=== PATIENT | male | born 1935 | race Caucasian/White ===

== ENCOUNTER 2016-09-15 08:25 | Day surgery (SDC) | payer OTHER, BC ==
[2016-09-15] MEDS ORDERED: PROPOFOL 20 ML ONE ×3 (08:44)
[2016-09-15 09:05] VITALS: BMI 25.0
[2016-09-15 10:04] VITALS: TEMP 98.4
[2016-09-15 10:59] VITALS: BP 137/89; PULSE 58
--- NOTE | 2016-09-18 10:02 | PATH ---
Surgical Pathology Report Patient Name: LAIM OLEARY [facility]. Rec. #: [id number] /Age/Gender: 1935 (Age: 81) / M Account: [id number] Location: U-ENDOSCOPY Taken: 09/15/2016 Received: 09/15/2016 Reported: 09/18/2016 Physicians: Meera Denis M.D. Specimen(s) Received A: BX ILEUM B: BX CECUM C: BX RIGHT COLON D: BX TRANSVERSE COLON E: BX DESCENDING COLON F: BX SIGMOID G: BX RECTUM Clinical History Crohn's disease surveillance Crohn's of terminal ileum, quiescent colitis, diverticulosis Final Diagnosis A. ILEUM, BIOPSY: FOCALLY ULCERATED ILEAL MUCOSA WITH ACTIVE MILD TO MODERATE CHRONIC COLITIS WITH FOCAL SURFACE ULCERATION, ULCER SLOUGH, FOCAL GRANULATION TISSUE FORMATION, REACTIVE LYMPHOID AGGREGATES AND MILD CRYPT ALTERATION. NO EVIDENCE OF GRANULOMATA OR DYSPLASIA. B. COLON, CECUM, BIOPSY: COLONIC MUCOSA WITH FOCAL REACTIVE LYMPHOID AGGREGATES AND FOCAL MILD CRYPT ALTERATIONS. NO EVIDENCE OF ACTIVE INFLAMMATION, GRANULOMATA OR DYSPLASIA. C. COLON, RIGHT, BIOPSY: COLONIC MUCOSA WITH FOCAL MINIMAL CRYPT ALTERATION. NO EVIDENCE OF ACTIVE INFLAMMATION, GRANULOMATA OR DYSPLASIA. D. COLON, TRANSVERSE, BIOPSY: COLONIC MUCOSA WITHOUT SIGNIFICANT PATHOLOGIC CHANGES. NO EVIDENCE OF ACTIVE INFLAMMATION, SIGNIFICANT ARCHITECTURAL DISTORTION, GRANULOMATA WITH DYSPLASIA. E. COLON, DESCENDING, BIOPSY: COLONIC MUCOSA WITH FOCALLY ACTIVE MILD CHRONIC COLITIS WITH FOCAL CRYPTITIS AND FOCAL MILD CRYPT ALTERATION. NO EVIDENCE OF GRANULOMATA OR DYSPLASIA. F. COLON, SIGMOID, BIOPSY: COLONIC MUCOSA WITH FOCALLY ACTIVE MILD CHRONIC COLITIS WITH CRYPTITIS AND FOCAL MINIMAL CRYPT ALTERATION. NO EVIDENCE OF GRANULOMATA OR DYSPLASIA. G. RECTUM, BIOPSY: RECTAL MUCOSA WITH FOCAL ACTIVE PROCTITIS WITH FOCAL CRYPTITIS, FOCAL CRYPT REGENERATIVE CHANGES AND SURFACE HYPERPLASTIC CHANGE. NO EVIDENCE OF SIGNIFICANT ARCHITECTURAL DISTORTION, GRANULOMATA OR DYSPLASIA. Comment: Clinical history of Crohn's disease is noted. 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 Electronically Signed Peyman Edward M.D. Gross Description A. Received in formalin, labeled "biopsy ileum" are 6 gauthier, irregular portions of soft tissue ranging from 0.1-0.4 cm in greatest dimension. The specimens are submitted in toto in one cassette. B. Received in formalin, labeled "biopsy cecum" are 5 gauthier, irregular portions of soft tissue ranging from 0.2-0.9 cm in greatest dimension. The specimens are submitted in toto in one cassette. C. Received in formalin, labeled "biopsy right colon" are 3 gauthier, irregular portions of soft tissue averaging 0.3 cm in greatest dimension. The specimens are submitted in toto in one cassette. D. Received in formalin, labeled "biopsy transverse colon" are 4 gauthier, irregular portions of soft tissue ranging from 0.3-0.6 cm in greatest dimension. The specimens are submitted in toto in one cassette. E. Received in formalin, labeled "biopsy descending colon" are 4 gauthier, irregular portions of soft tissue ranging from 0.2-0.4 cm in greatest dimension. The specimens are submitted in toto in one cassette. F. Received in formalin, labeled "biopsy sigmoid colon" are 4 gauthier, irregular portions of soft tissue ranging from 0.2-0.4 cm in greatest dimension. The specimens are submitted in toto in one cassette. G. Received in formalin, labeled "biopsy rectum" are 4 gauthier, irregular portions of soft tissue ranging from 0.2-0.3 cm in greatest dimension. The specimens are submitted in toto in one cassette. 09/15/2016 saudi09/15/2016
== END 2016-09-15 10:58 | disposition home or self-care (01) ==
LOC: JASU-ENDO 08:25
PROVIDERS: ATTEND Internal Medicine Gastroenterology
PROC: 0DBB8ZX Excision of Ileum, Via Natural or Artificial Opening Endoscopic, Diagnostic (ICD-10-PCS; principal; 2016-09-15 09:00)
DX: Z12.11 Encounter for screening for malignant neoplasm of colon (principal); K50.90 Crohn's disease, unspecified, without complications; K63.3 Ulcer of intestine; K56.69 Other intestinal obstruction; K57.30 Diverticulosis of large intestine without perforation or abscess without bleeding
CPT/HCPCS: 88305-TC

== ENCOUNTER 2018-03-31 16:32 | Emergency (ER) | payer OTHER, BC ==
[2018-03-31 16:40] VITALS: BMI 24.7
--- NOTE | 2018-03-31 18:12 | PDOC ---
History of Present Illness - General Chief Complaint: Altered Mental Status Stated Complaint: DISORIENTED, NECK & PAIN Time Seen by Provider: 03/31/18 17:50 History Source: Patient - History of Present Illness Initial Comments: 03/31/18 18:10 The patient is an 82 year old male with a PMH of NC, HTN, HLD, Alzheimer's dementia who presents to the ED c/o AMS. Daughter @ bedside assists with history. States at baseline patient is A&O x3 and talkative and ambulates without assistance. Patient drives without assistance. Today daughter found patient wearing three pairs of pants and clothes strewn all around the house. Patient also was ambulating at a slower pace than usual and holding on to daughter. Started Olanzapine two days previous for Alzheimer's associated hallucinations. ROS is positive for dysuria without hematuria. The patient denies chest pain, shortness of breath, abdominal pain, nausea/ vomiting, diarrhea/constipation, numbness/tingling. NKDA Surgical: R inguinal hernia repair Social: Denies toxic habits PMD: Dr. Hodges [facility] Neurology: Dr. Mao Past History - Past Medical History Allergies/Adverse Reactions: Allergies Allergy/AdvReac Type Severity Reaction Status Date / Time No Known Drug Allergies Allergy Verified 03/31/18 16:39 Home Medications: Ambulatory Orders Aspirin Coated [Ecotrin -] 81 mg PO DAILY 11/03/11 Multivit-Min/FA/Lycopene/Lut [Centrum Silver Tablet] 1 each PO DAILY 11/03/11 Metoprolol Succinate [Toprol XL -] 50 mg PO BID #0 tab.sr.24h 11/09/11 Terazosin HCl [Hytrin -] 10 mg PO DAILY #0 capsule 11/09/11 Allopurinol [Zyloprim -] 300 mg PO DAILY 03/25/12 Atorvastatin Calcium [Lipitor] 10 mg PO DAILY 03/25/12 Docosahexanoic Acid/Epa [Fish Oil Softgel] 1 each PO DAILY 03/25/12 Quinapril/Hydrochlorothiazide [Accuretic 20-12.5 mg Tablet] 1 tab PO HS Azathioprine [Imuran -] 50 mg PO DAILY 09/15/15 Mesalamine [Apriso] 4 tab PO DAILY 09/15/15 Anemia: No Asthma: No Cancer: No Cardiac Disorders: Yes (NC,ASHD) COPD: No CHF: No Dementia: No Diabetes: No GI Disorders: Yes (CROHN'S DISEASE) Disorders: No HTN: Yes Hypercholesterolemia: Yes Liver Disease: No Seizures: No Other medical history: gout right foot - Surgical History Abdominal Surgery: Yes (RIH/MESH -REMOVED MESH 04/08) Appendectomy: Yes Orthopedic Surgery: Yes (SEVERED TENDON L WRIST) - Suicide/Smoking/Psychosocial Hx Smoking Status: No Smoking History: Never smoked Have you smoked in the past 12 months: No Number of Cigarettes Smoked Daily: 0 Information on smoking cessation initiated: No Hx Alcohol Use: No Drug/Substance Use Hx: No Substance Use Type: None Hx Substance Use Treatment: No Review of Systems - Review of Systems Constitutional: No: Chills, Fever, Other HEENTM: No: Double Vision Respiratory: No: Cough, Shortness of Breath Cardiac (ROS): No: Chest Pain, Lightheadedness, Palpitations, Syncope ABD/GI: No: Constipated, Diarrhea, Nausea, Vomiting : Yes: Dysuria *Physical Exam - Vital Signs Last Vital Signs Temp Pulse Resp BP Pulse Ox 98.8 F 55 L 18 106/51 L 100 03/31/18 16:35 03/31/18 16:35 03/31/18 16:35 03/31/18 16:35 03/31/18 16:35 - Physical Exam General Appearance: Yes: Nourished, Appropriately Dressed HEENT: positive: Normal Voice, Hearing Grossly Normal Neck: positive: Trachea midline, Supple Respiratory/Chest: positive: Lungs Clear, Normal Breath Sounds. negative: Crackles, Wheezing Cardiovascular: positive: S1, S2 Vascular Pulses: Dorsalis-Pedis (R): 2+, Doralis-Pedis (L): 2+ Gastrointestinal/Abdominal: positive: Normal Bowel Sounds, Soft Extremity: positive: Normal Capillary Refill, Normal Inspection Integumentary: positive: Normal Color, Dry, Warm Neurologic: positive: Fully Oriented, Alert ED Treatment Course - LABORATORY CBC & Chemistry Diagram: 03/31/18 19:30 03/31/18 19:30 Medical Decision Making - Medical Decision Making 03/31/18 18:13 82 year old with AMS. VS unremarkable. PE signifcant for RLQ TTP. Will obtain AMS lab (TSH, B-12, Ammonia, Lactic Acid) + Head CT. As patient has abdominal tenderness and unable to provide comprehensive history, will obtain CT abdomen. IV fluids. Reassess. 03/31/18 20:24 Lactic Acid, Ammonia, Mg wnL Head CT negative for acute ischemia/bleed Abdominal CT shows illeitis, inguinal hernia, interstitial changes c/w chronic lung disease. UA negative Troponin (-) x1 At this time patient is medically stable without concern for medical emergency. Will discharge home w/daughter with instruction to follow-up with PMD for evaluation of home care. I discussed the physical exam findings, ancillary test results and final diagnoses with the patient. I answered all of the patient's questions. The patient was satisfied with the care received and felt comfortable with the discharge plan and treatment plan. The patient will return to the Emergency Department with any new, persistent or worsening symptoms. *DC/Admit/Observation/Transfer Diagnosis at time of Disposition: Altered mental status - Discharge Dispostion Disposition: HOME Condition at time of disposition: Good Decision to Admit order: No - Referrals Referrals: Luis Roland MD [Primary Care Provider] - Rey Mao MD [Staff Physician] - - Patient Instructions Additional Instructions: All of your father's labs and a cat scan of his head and his abdomen showed no concerning findings. At this time you are safe for discharge home. Please call Dr. Roland in the morning to review your father's medications. Return to the Emergency Department for any new/worsening/concerning symptoms. - Post Discharge Activity
[2018-03-31 19:39] LABS: BASO % 0.8 % (0-2.0); EOS % 2.1 % (0-4.5); HEMATOCRIT 31.2 % (35.4-49); HEMOGLOBIN 11.2 GM/dL (11.7-16.9); LYMPH % 17.4 % (8-40); MCH 35.8 pg (25.7-33.7); MCHC 35.9 g/dl (32.0-35.9); MEAN CELL VOLUME 99.7 fl (80-96); MEAN PLT VOLUME 8.2 fl (7.5-11.1); MONO % 6.6 % (3.8-10.2); NEUT % 73.1 % (42.8-82.8); PLATELET COUNT 180 K/MM3 (134-434); RBC 3.12 M/mm3 (4.00-5.60); RDW 15.1 % (11.9-15.9); WHITE BLOOD COUNT 5.1 K/mm3 (4.0-10.0)
[2018-03-31] MEDS ORDERED: SODIUM CHLORIDE 0.9% 500 ML INFUS.BAG IV ONE (20:25)
[2018-03-31 20:32] LABS: ALBUMIN 3.8 g/dl (3.4-5.0); ALK PHOS 49 U/L (45-117); ANION GAP 7 MMOL/L (8-16); BILIRUBIN,TOTAL 1.2 mg/dL (0.2-1); BLOOD UREA NITROGEN 35 mg/dL (7-18); CALCIUM 8.5 mg/dL (8.5-10.1); CHLORIDE 108 mmol/L (98-107); CO2 25 mmol/L (21-32); GLUCOSE,RANDOM 95 mg/dL (74-106); POTASSIUM 3.6 mmol/L (3.5-5.1); SGOT/AST 24 U/L (15-37); SGPT/ALT 22 U/L (13-61); SODIUM 140 mmol/L (136-145); TOT PROT 5.9 g/dl (6.4-8.2)
--- NOTE | 2018-03-31 21:20 | PDOC ---
Attending Attestation - Resident Resident Name: Blanca Boyce - ED Attending Attestation I have performed the following: I have examined & evaluated the patient, The case was reviewed & discussed with the resident, I agree w/resident's findings & plan, Exceptions are as noted - HPI HPI: 03/31/18 21:19 this 82 yo male with history of dementia was found with three sets of clothes on and walking more slowly than usual 03/31/18 21:20 - Physicial Exam PE: 04/01/18 01:47 elderly 82 who is ambulatory and conversant was brought in by his daughter for increasing confusion 04/01/18 01:48 head ncat neck supple eyes jyothi eomi lungs cta b/l cvs [id number] abd soft,nontender ext from,nodeformity neuro alert and conversant,no ataxia,motor strength 5/5,no clonus,very poor historian psych sl belligerent skin warm and dry - Medical Decision Making 03/31/18 22:17 Patient is being hydrated prior to his CAT scan with contrast. 2. GFR greater than 60. Creatinine is within normal limits 03/31/18 22:58 04/01/18 01:50 ct scan head no acute intracranial pathology UA negative ekg no ischema,neg trop imp worsening dementia plan see Dr Roland this week in the office ,discuss home care
[2018-03-31 22:35] VITALS: BP 108/55; PULSE 59; TEMP 98.1
[2018-03-31 23:24] LABS: URINE APPEARANCE CLEAR; URINE BILIRUBIN NEGATIVE (<2.0 mg/dL); URINE COLOR COLORLESS; URINE GLUCOSE (UA) NEGATIVE (NEGATIVE); URINE KETONE NEGATIVE (NEGATIVE); URINE LEUK ESTERASE NEGATIVE (NEGATIVE); URINE NITRITE NEGATIVE (NEGATIVE); URINE PROTEIN NEGATIVE (NEGATIVE); URINE UROBILINOGEN NEGATIVE mg/dL (0.2-1.0)
--- NOTE | 2018-04-01 10:30 | EKG ---
Test Reason : Blood Pressure : / mmHG Vent. Rate : 052 BPM Atrial Rate : 052 BPM P-R Int : 174 ms QRS Dur : 072 ms QT Int : 462 ms P-R-T Axes : 062 006 028 degrees QTc Int : 429 ms SINUS BRADYCARDIA OTHERWISE NORMAL ECG WHEN COMPARED WITH ECG OF 03-NOV-2011 14:26, PREMATURE SUPRAVENTRICULAR COMPLEXES ARE NO LONGER PRESENT CRITERIA FOR INFERIOR INFARCT ARE NO LONGER PRESENT Confirmed by DEAN BAUMANN, STEPH ([id number]) on 04/01/2018 10:29:54 AM Referred By: Confirmed By:STEPH MORAN MD
== END 2018-04-01 00:28 | disposition home or self-care (01) ==
LOC: JER 16:32
DX: G30.8 Other Alzheimer's disease (principal); F02.80 Dementia in other diseases classified elsewhere, unspecified severity, without behavioral disturbance, psychotic disturbance, mood disturbance, and anxiety; I25.10 Atherosclerotic heart disease of native coronary artery without angina pectoris; I10 Essential (primary) hypertension; I25.2 Old myocardial infarction; E78.00 Pure hypercholesterolemia, unspecified; M10.9 Gout, unspecified
CPT/HCPCS: 36415; 70450-TC; 71045-TC-FY; 74177-TC; 80053; 81003; 82140; 82550; 82553; 82607; 83605; 83735; 84443; 84484; 85025; 87086; 93005; 93010; 99282-25

== ENCOUNTER 2018-08-01 13:12 | Inpatient (IN) | payer OTHER, BC ==
--- NOTE | 2018-08-01 15:37 | PDOC ---
History of Present Illness - General Chief Complaint: Altered Mental Status Stated Complaint: SENT BY PCP Time Seen by Provider: 08/01/18 14:04 History Source: Patient, Family (daughter) - History of Present Illness Initial Comments: 08/01/18 15:28 *Pt is a poor historian, majority obtained by daughter Pt is an 83yo M with PMH of Alzheimer's Dementia, Crohn's Disease, BPH, HTN sent to ED by PMD with daughter for AMS. Per daughter, pt has been "seeing people in his home" for the past week or so. Pt states that he does see people and when he is told that they are not there the people go away. Daughter went to pt's home and saw that his living space was disheveled, has garbage on the stove, is urinating on the floor, goes up to his neighbor's home telling them about the people. Per daughter, Dr. Roland recommended admission. He has been given different medications for dementia but is only taking Namenda right now. PMD: Luan Neuro: [facility] PMH: see hpi Meds: see med rec Allergies: nkda Social; denies 08/01/18 19:30 Past History - Past Medical History Allergies/Adverse Reactions: Allergies Allergy/AdvReac Type Severity Reaction Status Date / Time No Known Drug Allergies Allergy Verified 03/31/18 16:39 Home Medications: Ambulatory Orders Metoprolol Succinate [Toprol XL -] 50 mg PO BID #0 tab.sr.24h 11/09/11 Terazosin HCl [Hytrin -] 10 mg PO DAILY #0 capsule 11/09/11 Allopurinol [Zyloprim -] 300 mg PO DAILY 03/25/12 Atorvastatin Calcium [Lipitor] 10 mg PO DAILY 03/25/12 Quinapril/Hydrochlorothiazide [Accuretic 20-12.5 mg Tablet] 1 tab PO HS Azathioprine [Imuran -] 50 mg PO DAILY 09/15/15 Mesalamine [Apriso] 4 tab PO DAILY 09/15/15 Memantine HCl [Namenda -] 10 mg PO BID 08/01/18 Quetiapine Fumarate [Seroquel -] 25 mg PO HS 08/01/18 Anemia: No Asthma: No Cancer: No Cardiac Disorders: Yes ([place],ASHD) COPD: No CHF: No Dementia: Yes Diabetes: No GI Disorders: Yes (CROHN'S DISEASE) Disorders: No HTN: Yes Hypercholesterolemia: Yes Liver Disease: No Seizures: No - Surgical History Abdominal Surgery: Yes (RIH/MESH -REMOVED MESH 04/08) Appendectomy: Yes Orthopedic Surgery: Yes (SEVERED TENDON L WRIST) - Suicide/Smoking/Psychosocial Hx Smoking Status: No Smoking History: Never smoked Have you smoked in the past 12 months: No Number of Cigarettes Smoked Daily: 0 Information on smoking cessation initiated: No Hx Alcohol Use: No Drug/Substance Use Hx: No Substance Use Type: None Hx Substance Use Treatment: No Review of Systems - Review of Systems Constitutional: No: Chills, Fever, Weakness HEENTM: No: Eye Pain, Recent change in vision, Double Vision Respiratory: No: Cough, Shortness of Breath Cardiac (ROS): No: Chest Pain, Lightheadedness, Palpitations, Syncope ABD/GI: No: Symptoms Reported : No: Burning, Dysuria, Flank Pain, Hematuria Musculoskeletal: No: Symptoms Reported Integumentary: No: Symptoms Reported Neurological: No: Headache, Numbness, Tingling, Tremors Psychiatric: Yes: Other (auditory and visual hallucinations) *Physical Exam - Vital Signs Last Vital Signs Temp Pulse Resp BP Pulse Ox 97.8 F 60 18 129/57 L 100 08/01/18 13:30 08/01/18 13:30 08/01/18 13:30 08/01/18 13:30 08/01/18 13:30 - Physical Exam General Appearance: Yes: Nourished, Appropriately Dressed. No: Apparent Distress HEENT: positive: EOMI, KARIN, Pharynx Normal. negative: Pale Conjunctivae, Scleral Icterus (R), Scleral Icterus (L) Neck: positive: Trachea midline, Supple. negative: Carotid bruit, Lymphadenopathy (R), Lymphadenopathy (L) Respiratory/Chest: positive: Lungs Clear, Normal Breath Sounds. negative: Crackles, Rales, Rhonchi, Stridor, Wheezing Cardiovascular: positive: Regular Rhythm, Regular Rate, S1, S2. negative: Edema , JVD, Murmur Vascular Pulses: Carotid (R): 2+, Carotid (L): 2+, Dorsalis-Pedis (R): 2+, Doralis-Pedis (L): 2+ Gastrointestinal/Abdominal: positive: Normal Bowel Sounds, Soft. negative: Guarding, Rebound, Tenderness, Hernia Musculoskeletal: negative: CVA Tenderness Extremity: positive: Normal Capillary Refill, Pelvis Stable. negative: Pedal Edema, Calf Tenderness Integumentary: positive: Normal Color, Dry, Warm Neurologic: positive: flight operations manager II-XII NML intact, Alert, Normal Mood/Affect, Normal Response, Motor Strength 5/5. negative: Fully Oriented (AOx1) Moderate Sedation - Procedure Monitoring Vital Signs: Procedure Monitoring Vital Signs Temperature 97.8 F 08/01/18 13:30 Pulse Rate 60 08/01/18 13:30 Respiratory Rate 18 08/01/18 13:30 Blood Pressure 129/57 L 08/01/18 13:30 O2 Sat by Pulse Oximetry (%) 100 08/01/18 13:30 ED Treatment Course - LABORATORY CBC & Chemistry Diagram: 08/01/18 15:02 08/01/18 15:02 - RADIOLOGY Radiology Studies Ordered: Category Date Time Status HEAD CT WITHOUT CONTRAST [CT] Stat CT Scan 08/01/18 15:19 Ordered Medical Decision Making - Medical Decision Making 08/01/18 17:07 *Pt is a poor historian, majority obtained by daughter Pt is an 83yo M with PMH of Alzheimer's Dementia, BPH, HTN sent to ED by PMD with daughter for AMS. Per daughter, pt has been "seeing people in his home" for the past week or so. Pt states that he does see people and when he is told that they are not there the people go away. Daughter went to pt's home and saw that his living space was disheveled, has garbage on the stove, is urinating on the floor, goes up to his neighbor's home telling them about the people. Per daughter, Dr. Roland recommended admission. He has been given different medications for dementia but is only taking Namenda right now. Vitals: wnl PE: AOx1. Neuro exam normal. Delirium Ddx includes but not limited to electrolyte disturbance, infection, metabolic derangements, brain lesion, polypharmacy -cbc, cmp, coags, ua -ekg, ct head CT head does not show acute changes EKG: nsr Labs wnl. spoke to Dr. Roland who stated pt had been having symptoms for months rather than weeks. Lives alone, is not safe by himself. Family does not live nearby. Pt admitted for AMS, dementia *DC/Admit/Observation/Transfer Diagnosis at time of Disposition: Altered mental status Qualifiers: Altered mental status type: delirium Qualified Code(s): R41.0 - Disorientation , unspecified - Discharge Dispostion Condition at time of disposition: Good Decision to Admit order: Yes - Referrals - Patient Instructions - Post Discharge Activity
[2018-08-01 16:40] LABS: BASO % 0.5 % (0-2.0); EOS % 1.4 % (0-4.5); HEMATOCRIT 36.7 % (35.4-49); HEMOGLOBIN 12.7 GM/dL (11.7-16.9); LYMPH % 11.2 % (8-40); MCH 35.8 pg (25.7-33.7); MCHC 34.5 g/dl (32.0-35.9); MEAN CELL VOLUME 103.7 fl (80-96); MEAN PLT VOLUME 8.9 fl (7.5-11.1); MONO % 8.1 % (3.8-10.2); NEUT % 78.8 % (42.8-82.8); PLATELET COUNT 186 K/MM3 (134-434); RBC 3.54 M/mm3 (4.00-5.60); RDW 14.8 % (11.9-15.9); WHITE BLOOD COUNT 5.5 K/mm3 (4.0-10.0)
[2018-08-01 17:04] LABS: INR 1.07 (0.83-1.09); PROTHROMBIN TIME (PATIENT) 12.6 SEC (9.7-13.0)
--- NOTE | 2018-08-01 17:13 | PDOC ---
Attending Attestation - HPI HPI: 08/01/18 17:34 The patient is a 83 year old male with a PMH of Alzheimer's, BPH, and HTN sent in by PCP for altered mental status. As per daughter at bedside, patient is having visual and auditory hallucinations. Daughter states the patient has been having these hallucinations for the past year, but have worsened over the past couple of weeks. Patient is waking up in the middle of the night very confused, urinating on the kitchen floor and placing his trash on the stove. Dr. Mustafa, patient's neurologist, prescribed the patient seroquel with no improvement of his symptoms. Daughter is requesting NH placement at this time. Allergies: NKDA Social: Denies toxic behaviors. PCP: Dr. Roland - Physicial Exam PE: 08/01/18 18:04 ADULT PHYSICAL EXAM Constitutional: Awake, alert, (+) auditory and visual hallucinations. Head: Normocephalic. Atraumatic Eyes: PERRL. EOMI. Conjunctivae are not pale. ENT: Mucous membranes are moist and intact. Posterior pharynx without exudates or erythema. Uvula midline Cardiovascular: Regular rate. Regular rhythm. S1, S2 regular. Distal pulses are 2+ and symmetric. Pulmonary/Chest: No evidence of respiratory distress. Clear to auscultation bilaterally No wheezing, rales or rhonchi. Abdominal: Soft and non-distended. There is no tenderness. No rebound, guarding or rigidity. Musculoskeletal: No edema. No cyanosis. No clubbing. Full range of motion in all extremities. No calf tenderness. Radial/pedal pulses are intact and 2+ bilaterally Skin: Skin is warm and dry. No petechiae. No purpura. Neurological: Awake and alert. Cranial nerves II-XII are grossly intact. Strength is grossly symmetric. No sensory deficits. Psychiatric: Good eye contact. Normal interaction, affect and behavior. <Billie Bacon - Last Filed: 08/01/18 18:09> - Resident Resident Name: Judith Bailey - ED Attending Attestation I have performed the following: I have examined & evaluated the patient, The case was reviewed & discussed with the resident, I agree w/resident's findings & plan, Exceptions are as noted - Medical Decision Making 08/01/18 17:12 I, Dr. Emmy Ogden, DO, attest that this document has been prepared under my direction and personally reviewed by me in its entirety. I further attest, that it accurately reflects all work, treatment, procedures and medical decision -making performed by me. 08/01/18 17:41 a/p: 83yo male with hx of dementia with worsening auditory and visual hallucinations -sent by Dr. Roland for admission -saw dr. mustafa yesterday who started seroquel -pt with disheveled house -plan for rehab vs nh placement for worsening dementia -will send labs, head ct -ekg -cxr -will dose daily meds 08/01/18 17:42 labs reviewed no elevated wbc head ct does not show acute changes. 08/01/18 19:15 labs reviewed no uti microblog sent to [facility] for admission for hallucinations, worsening dementia <Emmy Ogden - Last Filed: 08/01/18 19:16> Heart Score/ECG Review - ECG Intrepretation Comment:: 08/01/18 19:15 sinus peyton at 57, nl axis, nl interval, no acute st/t wave findings <Emmy Ogden - Last Filed: 08/01/18 19:16>
[2018-08-01 17:38] LABS: ALBUMIN 3.7 g/dl (3.4-5.0); ALK PHOS 57 U/L (45-117); ANION GAP 6 MMOL/L (8-16); BLOOD UREA NITROGEN 20 mg/dL (7-18); CALCIUM 8.8 mg/dL (8.5-10.1); CHLORIDE 109 mmol/L (98-107); CO2 29 mmol/L (21-32); CREATININE 0.8 mg/dL (0.55-1.3); GLUCOSE,RANDOM 87 mg/dL (74-106); POTASSIUM 4.2 mmol/L (3.5-5.1); SGOT/AST 17 U/L (15-37); SGPT/ALT 24 U/L (13-61); SODIUM 144 mmol/L (136-145); TOT PROT 6.2 g/dl (6.4-8.2)
[2018-08-01] MEDS ORDERED: MEMANTINE HCL 5 MG TABLET (UD) PO ONE (17:41)
[2018-08-01] MEDS ORDERED: ATORVASTATIN CA 10 MG TABLET (FP) PO ONE (17:45)
[2018-08-01] MEDS ORDERED: QUEtiapine FUMARATE 25 MG TABLET (FP) ONE (17:51)
[2018-08-01] MEDS ORDERED: ATORVASTATIN CA 10 MG TABLET (FP) ONE (17:51)
[2018-08-01] MEDS: QUEtiapine FUMARATE 25 MG TABLET (FP) PO ONE ×2 (17:55→23:45)
[2018-08-01 18:20] LABS: URINE APPEARANCE CLEAR; URINE BILIRUBIN NEGATIVE (<2.0 mg/dL); URINE COLOR YELLOW; URINE GLUCOSE (UA) NEGATIVE (NEGATIVE); URINE KETONE NEGATIVE (NEGATIVE); URINE LEUK ESTERASE NEGATIVE (NEGATIVE); URINE NITRITE NEGATIVE (NEGATIVE); URINE PROTEIN NEGATIVE (NEGATIVE); URINE UROBILINOGEN NEGATIVE mg/dL (0.2-1.0)
--- NOTE | 2018-08-01 21:09 | PN ---
Teaching Attending Note Name of Resident: Rashmi Caldera ATTENDING PHYSICIAN STATEMENT I saw and evaluated the patient. I reviewed the resident's note and discussed the case with the resident. I agree with the resident's findings and plan as documented. SUBJECTIVE: Seen and examined; please refer to resident note for further historical information. Briefly, patient presents to the ER after being sent in by PCP for AMS. He has been having visual hallucinations fo 1 year and has been forsening for the past several weeks. Home was discheveled, etc. Dr. Mao recently started him on seroquel last night. Daughter wants to speak with staff regarding placement. He has no other complaints, no FND. Denies SI/HI. Conversant and pleasant but actively hallucinating with some tangential speech. 10 sys ROS done and negative aside from HPI PMH (Alzheimers, HTN, BPH, HLD, Chron's, CAD), PSH, Family hx, Social hx reviewed Medication list reviewed; pending reconciliation (Seroquel, terazosin, mesalamine, metoprolol, quinapril/hctz, azathioprine, atorva, allopurinol) OBJECTIVE: VS, labs, imaging reviewed NAD, AAOx2, resting comfortably in bed NC AT EOMI PERRLA RRR s1/2 no mgr Lungs CTAB, w/ sym exp NT ND +BS CN2-12 wnl, no fnd Normal mood, appropriate behavior. +hallucinations. Negative SI/HI. Head CT negative for acute pathology ASSESSMENT AND PLAN: Patient presents for visual hallucinations sent in by his PCP 1) Visual Hallucinations -Consult neurology and psychiatry; neuro checks overnight. Broad ddx (meds vs. underlying dementia, etc.). Check baseline labs (RPR, B12, etc.) to r/o any esoteric causes. Could also be a factor of his dementia. These are chronic. -Continue the seroquel (monitor qTc); hold his home memantine. Fall precautions. -Further management per specialty services; appreciate their input. -Consulting CM, JOSE regarding placement discussion 2) HTN -Controlled; continue PO meds 3) CAD -Controlled; continue PO meds 4) HLD -Continue home statin 5) BPH -Continue home meds 6) Macrocytosis -Check B12/Folate. Became evident 03/2018. FENA -PO -PRN replete -Continue home diet -As tolerated
--- NOTE | 2018-08-01 21:27 | HP ---
CHIEF COMPLAINT:altered mental status PCP:Dr. Roland HISTORY OF PRESENT ILLNESS: Patient is an 83 year old male with past medical history of Alzheimer's dementia , BPH, HTN, Crohn's disease, CAD, was brought to the ED by her daughters due to worsening dementia, with accompanying visual hallucinations. Patient lives alone at home, frequently "firing" his health aids. Patient is oriented x2, daughters at bedside to help with the history. When the daughter visited the patient today, his home was noted to be disheveled, with garbage on top of the stove and urine was noted on the kitchen floor. Patient was diagnosed with Alzheimer's dementia more than a year ago, and in the last few months, both the patient and her daughters noted that patient has been having worsening dementia , with the patient needing help in bathing, and would at times get lost in his own home not knowing where the bathroom or kitchen is. Patient also started to have visual hallucinations, seeing people that are not there. He would talk to them, as he is mostly familiar with the people he sees, but they would not reply , or tell them that they are not real and it would go away. Patient denies auditory hallucinations, no change in taste or smell. He denies voices or thoughts telling him to harm himself or others, no blurry vision or healing loss. Patient consulted with Dr. Mao yesterday and was started on Seroquel. Daughters believe patient is not safe to live alone at home anymore and would want him to be placed in rehab. ER course was notable for: (1)Head CT: no acute intracranial pathology (2) (3) Recent Travel:denies PAST MEDICAL HISTORY: Alzheimer's dementia BPH HTN Crohn's disease CAD PAST SURGICAL HISTORY: Right inguinal hernia repair (s/p mesh placement, s/p mesh removed) Social History: Smoking:previous smoker, quit 25 years ago Alcohol:occasional EtOH drinker Drugs: denies Family History: noncontributory Allergies No Known Drug Allergies Allergy (Verified 03/31/18 16:39) HOME MEDICATIONS: Home Medications Medication Instructions Recorded Metoprolol Succinate [Toprol XL -] 50 mg PO BID #0 tab.sr.24h 11/09/11 Terazosin HCl [Hytrin -] 10 mg PO DAILY #0 capsule 11/09/11 Allopurinol [Zyloprim -] 300 mg PO DAILY 03/25/12 Atorvastatin Calcium [Lipitor] 10 mg PO DAILY 03/25/12 Quinapril/Hydrochlorothiazide 1 tab PO HS 03/25/12 [Accuretic 20-12.5 mg Tablet] Azathioprine [Imuran -] 50 mg PO DAILY 09/15/15 Mesalamine [Apriso] 4 tab PO DAILY 09/15/15 Memantine HCl [Namenda -] 10 mg PO BID 08/01/18 Quetiapine Fumarate [Seroquel -] 25 mg PO HS 08/01/18 REVIEW OF SYSTEMS CONSTITUTIONAL: Absent: fever, chills, diaphoresis, generalized weakness, malaise, loss of appetite, weight change HEENT: Absent: rhinorrhea, nasal congestion, throat pain, throat swelling, difficulty swallowing, mouth swelling, ear pain, eye pain, visual changes CARDIOVASCULAR: Absent: chest pain, syncope, palpitations, irregular heart rate, lightheadedness , peripheral edema RESPIRATORY: Absent: cough, shortness of breath, dyspnea with exertion, orthopnea, wheezing, stridor, hemoptysis GASTROINTESTINAL: Absent: abdominal pain, abdominal distension, nausea, vomiting, diarrhea, constipation, melena, hematochezia GENITOURINARY: Absent: dysuria, frequency, urgency, hesitancy, hematuria, flank pain, genital pain MUSCULOSKELETAL: Absent: myalgia, arthralgia, joint swelling, back pain, neck pain SKIN: Absent: rash, itching, pallor HEMATOLOGIC/IMMUNOLOGIC: Absent: easy bleeding, easy bruising, lymphadenopathy, frequent infections ENDOCRINE: Absent: unexplained weight gain, unexplained weight loss, heat intolerance, cold intolerance NEUROLOGIC: dementia Absent: headache, focal weakness or paresthesias, dizziness, unsteady gait, seizure, mental status changes, bladder or bowel incontinence PSYCHIATRIC: hallucinations Absent: anxiety, depression, suicidal or homicidal ideation PHYSICAL EXAMINATION Vital Signs - 24 hr 08/01/18 08/01/18 08/01/18 13:30 18:00 19:57 Temperature 97.8 F 98 F 98.3 F Pulse Rate 60 Pulse Rate [ 62 68 Apical] Respiratory 18 18 17 Rate Blood Pressure 129/57 L Blood Pressure 155/72 159/89 [Right Arm] O2 Sat by Pulse 100 100 98 Oximetry (%) GENERAL: Awake, alert, and oriented to person and place, in no acute distress. HEAD: Normal with no signs of trauma. EYES: PERRLA, EOMI, sclera anicteric, conjunctiva clear. EARS, NOSE, THROAT: Ears normal, oropharynx clear without exudates. Moist mucous membranes. NECK: Normal range of motion, supple without lymphadenopathy, JVD, or masses. LUNGS: Breath sounds equal, clear to auscultation bilaterally. HEART: Regular rate and rhythm, normal S1 and S2 without murmur, rub or gallop. ABDOMEN: Soft, nontender, not distended, normoactive bowel sounds. MUSCULOSKELETAL: Normal range of motion at all joints.No CVA tenderness. UPPER EXTREMITIES: 2+ pulses, warm, well-perfused. No peripheral edema. LOWER EXTREMITIES: 2+ pulses, warm, well-perfused. No peripheral edema. NEUROLOGICAL: AAOX2, Cranial nerves II-XII intact. Motor strength 5/5, sensation intact on all extremities. No dysmetria, no dysdiadochokinesia. Normal speech. Uses a cane to ambulate. PSYCHIATRIC: Cooperative. Good eye contact. Appropriate mood and affect. SKIN: Warm, dry, normal turgor, no rashes or lesions noted. Laboratory Results - last 24 hr 08/01/18 08/01/18 08/01/18 15:02 15:02 15:02 WBC 5.5 RBC 3.54 L Hgb 12.7 Hct 36.7 D MCV 103.7 H MCH 35.8 H MCHC 34.5 RDW 14.8 Plt Count 186 MPV 8.9 Absolute Neuts (auto) 4.4 Neutrophils % 78.8 Lymphocytes % 11.2 D Monocytes % 8.1 Eosinophils % 1.4 Basophils % 0.5 Nucleated RBC % 0 PT with INR 12.60 INR 1.07 Sodium 144 Potassium 4.2 Chloride 109 H Carbon Dioxide 29 Anion Gap 6 L BUN 20 H Creatinine 0.8 Creat Clearance w eGFR > 60 Random Glucose 87 Calcium 8.8 Total Bilirubin 1.0 AST 17 ALT 24 Alkaline Phosphatase 57 Total Protein 6.2 L Albumin 3.7 Urine Color Urine Appearance Urine pH Ur Specific [place] Urine Protein Urine Glucose (UA) Urine Ketones Urine Blood Urine Nitrite Urine Bilirubin Urine Urobilinogen Ur Leukocyte Esterase 08/01/18 16:51 WBC RBC Hgb Hct MCV MCH MCHC RDW Plt Count MPV Absolute Neuts (auto) Neutrophils % Lymphocytes % Monocytes % Eosinophils % Basophils % Nucleated RBC % PT with INR INR Sodium Potassium Chloride Carbon Dioxide Anion Gap BUN Creatinine Creat Clearance w eGFR Random Glucose Calcium Total Bilirubin AST ALT Alkaline Phosphatase Total Protein Albumin Urine Color Yellow Urine Appearance Clear Urine pH 5.0 Ur Specific [place] 1.023 Urine Protein Negative Urine Glucose (UA) Negative Urine Ketones Negative Urine Blood Negative Urine Nitrite Negative Urine Bilirubin Negative Urine Urobilinogen Negative Ur Leukocyte Esterase Negative ASSESSMENT/PLAN: Patient is an 83 year old male with past medical history of Alzheimer's dementia , BPH, HTN, Crohn's disease, CAD, was brought to the ED by her daughters due to worsening dementia, with accompanying visual hallucinations. #AMS, visual hallucinations: likely 2/2 Alzheimer's dementia -may be dehydration, polypharmacy, no signs of infections, electrolytes wnl, no EtOH or drug abuse -Head CT: no acute intracranial pathology -B12, folate, TSH, ESR/CRP, HIV, HCV ordered -Neuro check -Fall risk precaution, aspiration precaution. -Will continue Seroquel -Will hold Memantine for now -Neurology (Dr. Mao) consulted. -Psychiatry consult. #Crohn's Disease: chronic -Continue Mesalamine 4mg -Azathioprine 50mg daily #BPH -Continue Terazosin 10mg daily #HTN -Continue home Toprol XL 50mg BID -Quinapril/HCTZ 20/12.5 #HLD -Continue Lipitor 40mg PO HS #FEN -Not on any standing fluids -Electrolytes wnl, routine bmp monitoring -Sodium controlled diet #Prophylaxis -Lovenox 40mg sq daily #Disposition -full code -admit to med surg -As per the daughters, it is agreed that patient would not be safe to live alone at home, and they agree for rehab placement once stable. Visit type - Emergency Visit Emergency Visit: Yes ED Registration Date: 08/01/18 Care time: The patient presented to the Emergency Department on the above date and was hospitalized for further evaluation of their emergent condition. - New Patient This patient is new to me today: Yes Date on this admission: 08/05/18 - Critical Care Critical Care patient: No
[2018-08-01 23:00] VITALS: BMI 24.4
[2018-08-02 07:13] LABS: BASO % 0.6 % (0-2.0); EOS % 1.5 % (0-4.5); HEMATOCRIT 33.7 % (35.4-49); LYMPH % 12.5 % (8-40); MCH 36.4 pg (25.7-33.7); MCHC 35.4 g/dl (32.0-35.9); MEAN CELL VOLUME 102.9 fl (80-96); MEAN PLT VOLUME 8.9 fl (7.5-11.1); MONO % 7.7 % (3.8-10.2); NEUT % 77.7 % (42.8-82.8); PLATELET COUNT 176 K/MM3 (134-434); RBC 3.28 M/mm3 (4.00-5.60); RDW 14.3 % (11.9-15.9); WHITE BLOOD COUNT 5.7 K/mm3 (4.0-10.0)
[2018-08-02 08:11] LABS: ANION GAP 7 MMOL/L (8-16); BLOOD UREA NITROGEN 19 mg/dL (7-18); CALCIUM 8.8 mg/dL (8.5-10.1); CHLORIDE 109 mmol/L (98-107); CO2 27 mmol/L (21-32); CREATININE 0.9 mg/dL (0.55-1.3); GLUCOSE,RANDOM 90 mg/dL (74-106); MAGNESIUM 2.3 mg/dL (1.8-2.4); PHOSPHOROUS 3.7 mg/dL (2.5-4.9); POTASSIUM 4.1 mmol/L (3.5-5.1); SODIUM 143 mmol/L (136-145)
[2018-08-02] MEDS ORDERED: PT OWN MED DRAWER 7, Y5N ONE ×2 (09:06→12:01)
--- NOTE | 2018-08-02 09:39 | PN ---
Physical Exam: SUBJECTIVE: Patient seen and examined pt feels good. No new complaints. OBJECTIVE: Vital Signs Period Temp Pulse Resp BP Sys/Lobo Pulse Ox Last 24 Hr 97.5 F-98.3 F 58-88 17-20 125-159/57-89 98-100 GENERAL: The patient is awake, alert, oriented to place, in no acute distress. HEAD: Normal with no signs of trauma. ENT: oropharynx clear without exudates, moist mucous membranes. NECK: Trachea midline, full range of motion, supple. LUNGS: Breath sounds equal, clear to auscultation bilaterally, no wheezes, no crackles, no accessory muscle use. HEART: Regular rate and rhythm, S1, S2 without murmur, ABDOMEN: Soft, nontender, nondistended, normoactive bowel sounds, no guarding, no rebound, EXTREMITIES: 2+ pulses, warm, well-perfused, no edema. NEUROLOGICAL: Cranial nerves II through XII grossly intact. Normal speech, gait not observed. PSYCH: Normal mood, normal affect. SKIN: Warm, dry, Laboratory Results - last 24 hr 08/01/18 08/01/18 08/01/18 15:02 15:02 15:02 WBC 5.5 RBC 3.54 L Hgb 12.7 Hct 36.7 D MCV 103.7 H MCH 35.8 H MCHC 34.5 RDW 14.8 Plt Count 186 MPV 8.9 Absolute Neuts (auto) 4.4 Neutrophils % 78.8 Lymphocytes % 11.2 D Monocytes % 8.1 Eosinophils % 1.4 Basophils % 0.5 Nucleated RBC % 0 ESR PT with INR 12.60 INR 1.07 Sodium 144 Potassium 4.2 Chloride 109 H Carbon Dioxide 29 Anion Gap 6 L BUN 20 H Creatinine 0.8 Creat Clearance w eGFR > 60 Random Glucose 87 Calcium 8.8 Phosphorus Magnesium Total Bilirubin 1.0 AST 17 ALT 24 Alkaline Phosphatase 57 C-Reactive Protein Total Protein 6.2 L Albumin 3.7 Vitamin B12 Serum Folate TSH Urine Color Urine Appearance Urine pH Ur Specific [place] Urine Protein Urine Glucose (UA) Urine Ketones Urine Blood Urine Nitrite Urine Bilirubin Urine Urobilinogen Ur Leukocyte Esterase HIV 1&2 Antibody Screen HIV P24 Antigen 08/01/18 08/01/18 08/01/18 16:51 21:53 21:53 WBC RBC Hgb Hct MCV MCH MCHC RDW Plt Count MPV Absolute Neuts (auto) Neutrophils % Lymphocytes % Monocytes % Eosinophils % Basophils % Nucleated RBC % ESR 3 PT with INR INR Sodium Potassium Chloride Carbon Dioxide Anion Gap BUN Creatinine Creat Clearance w eGFR Random Glucose Calcium Phosphorus Magnesium Total Bilirubin AST ALT Alkaline Phosphatase C-Reactive Protein < 0.3 Total Protein Albumin Vitamin B12 423 Serum Folate 25 H TSH 2.02 D Urine Color Yellow Urine Appearance Clear Urine pH 5.0 Ur Specific [place] 1.023 Urine Protein Negative Urine Glucose (UA) Negative Urine Ketones Negative Urine Blood Negative Urine Nitrite Negative Urine Bilirubin Negative Urine Urobilinogen Negative Ur Leukocyte Esterase Negative HIV 1&2 Antibody Screen HIV P24 Antigen 08/02/18 08/02/18 08/02/18 06:30 06:30 06:30 WBC 5.7 RBC 3.28 L Hgb 12.0 Hct 33.7 L MCV 102.9 H MCH 36.4 H MCHC 35.4 RDW 14.3 Plt Count 176 MPV 8.9 Absolute Neuts (auto) 4.4 Neutrophils % 77.7 Lymphocytes % 12.5 Monocytes % 7.7 Eosinophils % 1.5 Basophils % 0.6 Nucleated RBC % 0 ESR PT with INR INR Sodium 143 Potassium 4.1 Chloride 109 H Carbon Dioxide 27 Anion Gap 7 L BUN 19 H Creatinine 0.9 Creat Clearance w eGFR > 60 Random Glucose 90 Calcium 8.8 Phosphorus 3.7 Magnesium 2.3 Total Bilirubin AST ALT Alkaline Phosphatase C-Reactive Protein Total Protein Albumin Vitamin B12 Serum Folate TSH Urine Color Urine Appearance Urine pH Ur Specific [place] Urine Protein Urine Glucose (UA) Urine Ketones Urine Blood Urine Nitrite Urine Bilirubin Urine Urobilinogen Ur Leukocyte Esterase HIV 1&2 Antibody Screen Negative HIV P24 Antigen Negative Active Medications Generic Name Dose Route Start Last Admin Trade Name Freq PRN Reason Stop Dose Admin Allopurinol 300 mg 08/02/18 10:00 Zyloprim - PO DAILY [facility] Atorvastatin Calcium 10 mg 08/02/18 22:00 Lipitor - PO HS [facility] Azathioprine 50 mg 08/02/18 10:00 Imuran - PO DAILY [facility] Enoxaparin Sodium 40 mg 08/02/18 10:00 Lovenox - SQ DAILY [facility] Hydrochlorothiazide 12.5 mg 08/02/18 22:00 Hctz - PO HS [facility] Metoprolol Succinate 50 mg 08/02/18 10:00 Toprol Xl - PO BID [facility] Non-Formulary Medication 4 tab 08/02/18 10:00 Mesalamine [Apriso] PO DAILY [facility] Quetiapine Fumarate 25 mg 08/02/18 22:00 Seroquel - PO HS [facility] Quinapril HCl 20 mg 08/02/18 22:00 Accupril - PO HS [facility] Terazosin HCl 10 mg 08/02/18 10:00 Hytrin - PO DAILY [facility] ASSESSMENT/PLAN: Patient is an 83 year old male with past medical history of Alzheimer's dementia, BPH, HTN, Crohn's disease, CAD, was brought to the ED by her daughters due to worsening dementia, with accompanying visual hallucinations. # chronic dementia with hallucination -cbc, cmp unremarkable -Head CT: no acute intracranial pathology -B12, folate, TSH, ESR/CRP, are in normal limit - hiv and hepc studies pending -Fall risk precaution, aspiration precaution. -Will continue Seroquel -Will hold Memantine for now -Neurology (Dr. Mao) consulted. -Psychiatry consult. #Crohn's Disease: chronic -Continue Mesalamine 4mg -Azathioprine 50mg daily #BPH -Continue Terazosin 10mg daily #HTN -Continue home Toprol XL 50mg BID -Quinapril/HCTZ 20/12.5 #HLD -Continue Lipitor 40mg PO HS #FEN -Not on any standing fluids -Electrolytes wnl, routine bmp monitoring -Sodium controlled diet #Prophylaxis -Lovenox 40mg sq daily #Disposition -full code -admit to med surg -As per the daughters, it is agreed that patient would not be safe to live alone at home, and they agree for rehab placement once stable. Visit type - Emergency Visit Emergency Visit: Yes ED Registration Date: 08/01/18 Care time: The patient presented to the Emergency Department on the above date and was hospitalized for further evaluation of their emergent condition. - New Patient This patient is new to me today: No - Critical Care Critical Care patient: No
[2018-08-02] MEDS ORDERED: MEMANTINE HCL 10 MG TABLET (FP) PO SCH (10:00)
--- NOTE | 2018-08-02 10:18 | CONSULT ---
Consult - text type - Consultation Consultation Note: Neurology CHIEF COMPLAINT:altered mental status PCP:Dr. Roland HISTORY OF PRESENT ILLNESS: 83 year old male with past medical history of Alzheimer's dementia, BPH, HTN, Crohn's disease, CAD, was brought to the ED by her daughters due to worsening dementia, with accompanying visual hallucinations. Patient lives alone at home, frequently "firing" his health aids. He was seen by me in the office two days prior to admission. Reportedly, when his daughter visited the patient on date of admission, his home was noted to be disheveled, with garbage on top of the stove and urine was noted on the kitchen floor. Patient was diagnosed with Alzheimer's dementia more than a year ago, and in the last few months, both the patient and her daughters noted that patient has been having worsening dementia , with the patient needing help in bathing, and would at times get lost in his own home not knowing where the bathroom or kitchen is. Patient also started to have visual hallucinations, seeing people that are not there. He would talk to them, as he is mostly familiar with the people he sees, but they would not reply , or tell them that they are not real and it would go away. Patient denies auditory hallucinations, no change in taste or smell. He denies voices or thoughts telling him to harm himself or others, no blurry vision or healing loss. aat the most recent office visit, we discussed the use of cervical to try to help with his hallucinations and they were in agreement. He is also on Namenda twice a day.. There is a concern about his safety and ability to care for himself. CT had completed and did not show acute changes. Recent Travel:denies PAST MEDICAL HISTORY: Alzheimer's dementia BPH HTN Crohn's disease CAD PAST SURGICAL HISTORY: Right inguinal hernia repair (s/p mesh placement, s/p mesh removed) Social History: Smoking:previous smoker, quit 25 years ago Alcohol:occasional EtOH drinker Drugs: denies Family History: noncontributory Allergies No Known Drug Allergies Allergy (Verified 03/31/18 16:39) HOME MEDICATIONS: Home Medications Medication Instructions Recorded Metoprolol Succinate [Toprol XL -] 50 mg PO BID #0 tab.sr.24h 11/09/11 Terazosin HCl [Hytrin -] 10 mg PO DAILY #0 capsule 11/09/11 Allopurinol [Zyloprim -] 300 mg PO DAILY 03/25/12 Atorvastatin Calcium [Lipitor] 10 mg PO DAILY 03/25/12 Quinapril/Hydrochlorothiazide 1 tab PO HS 03/25/12 [Accuretic 20-12.5 mg Tablet] Azathioprine [Imuran -] 50 mg PO DAILY 09/15/15 Mesalamine [Apriso] 4 tab PO DAILY 09/15/15 Memantine HCl [Namenda -] 10 mg PO BID 08/01/18 Quetiapine Fumarate [Seroquel -] 25 mg PO HS 08/01/18 REVIEW OF SYSTEMS CONSTITUTIONAL: Absent: fever, chills, diaphoresis, generalized weakness, malaise, loss of appetite, weight change HEENT: Absent: rhinorrhea, nasal congestion, throat pain, throat swelling, difficulty swallowing, mouth swelling, ear pain, eye pain, visual changes CARDIOVASCULAR: Absent: chest pain, syncope, palpitations, irregular heart rate, lightheadedness , peripheral edema RESPIRATORY: Absent: cough, shortness of breath, dyspnea with exertion, orthopnea, wheezing, stridor, hemoptysis GASTROINTESTINAL: Absent: abdominal pain, abdominal distension, nausea, vomiting, diarrhea, constipation, melena, hematochezia GENITOURINARY: Absent: dysuria, frequency, urgency, hesitancy, hematuria, flank pain, genital pain MUSCULOSKELETAL: Absent: myalgia, arthralgia, joint swelling, back pain, neck pain SKIN: Absent: rash, itching, pallor HEMATOLOGIC/IMMUNOLOGIC: Absent: easy bleeding, easy bruising, lymphadenopathy, frequent infections ENDOCRINE: Absent: unexplained weight gain, unexplained weight loss, heat intolerance, cold intolerance NEUROLOGIC: dementia Absent: headache, focal weakness or paresthesias, dizziness, unsteady gait, seizure, mental status changes, bladder or bowel incontinence PSYCHIATRIC: hallucinations Absent: anxiety, depression, suicidal or homicidal ideation PHYSICAL EXAMINATION Vital Signs - 24 hr 08/01/18 08/01/18 08/01/18 13:30 18:00 19:57 Temperature 97.8 F 98 F 98.3 F Pulse Rate 60 Pulse Rate [ 62 68 Apical] Respiratory 18 18 17 Rate Blood Pressure 129/57 L Blood Pressure 155/72 159/89 [Right Arm] O2 Sat by Pulse 100 100 98 Oximetry (%) GENERAL: Awake, alert, and oriented to person and place, in no acute distress. HEAD: Normal with no signs of trauma. EYES: PERRLA, EOMI, sclera anicteric, conjunctiva clear. EARS, NOSE, THROAT: Ears normal, oropharynx clear without exudates. Moist mucous membranes. NECK: Normal range of motion, supple without lymphadenopathy, JVD, or masses. LUNGS: Breath sounds equal, clear to auscultation bilaterally. HEART: Regular rate and rhythm, normal S1 and S2 without murmur, rub or gallop. ABDOMEN: Soft, nontender, not distended, normoactive bowel sounds. MUSCULOSKELETAL: Normal range of motion at all joints.No CVA tenderness. UPPER EXTREMITIES: 2+ pulses, warm, well-perfused. No peripheral edema. LOWER EXTREMITIES: 2+ pulses, warm, well-perfused. No peripheral edema. NEUROLOGICAL: AAOX2, Cranial nerves II-XII intact. Motor strength 5/5, sensation intact on all extremities. No dysmetria, no dysdiadochokinesia. Normal speech. Uses a cane to ambulate. PSYCHIATRIC: Cooperative. Good eye contact. Appropriate mood and affect. SKIN: Warm, dry, normal turgor, no rashes or lesions noted. Laboratory Results - last 24 hr 08/01/18 08/01/18 08/01/18 15:02 15:02 15:02 WBC 5.5 RBC 3.54 L Hgb 12.7 Hct 36.7 D MCV 103.7 H MCH 35.8 H MCHC 34.5 RDW 14.8 Plt Count 186 MPV 8.9 Absolute Neuts (auto) 4.4 Neutrophils % 78.8 Lymphocytes % 11.2 D Monocytes % 8.1 Eosinophils % 1.4 Basophils % 0.5 Nucleated RBC % 0 PT with INR 12.60 INR 1.07 Sodium 144 Potassium 4.2 Chloride 109 H Carbon Dioxide 29 Anion Gap 6 L BUN 20 H Creatinine 0.8 Creat Clearance w eGFR > 60 Random Glucose 87 Calcium 8.8 Total Bilirubin 1.0 AST 17 ALT 24 Alkaline Phosphatase 57 Total Protein 6.2 L Albumin 3.7 Urine Color Urine Appearance Urine pH Ur Specific [place] Urine Protein Urine Glucose (UA) Urine Ketones Urine Blood Urine Nitrite Urine Bilirubin Urine Urobilinogen Ur Leukocyte Esterase 08/01/18 16:51 WBC RBC Hgb Hct MCV MCH MCHC RDW Plt Count MPV Absolute Neuts (auto) Neutrophils % Lymphocytes % Monocytes % Eosinophils % Basophils % Nucleated RBC % PT with INR INR Sodium Potassium Chloride Carbon Dioxide Anion Gap BUN Creatinine Creat Clearance w eGFR Random Glucose Calcium Total Bilirubin AST ALT Alkaline Phosphatase Total Protein Albumin Urine Color Yellow Urine Appearance Clear Urine pH 5.0 Ur Specific [place] 1.023 Urine Protein Negative Urine Glucose (UA) Negative Urine Ketones Negative Urine Blood Negative Urine Nitrite Negative Urine Bilirubin Negative Urine Urobilinogen Negative Ur Leukocyte Esterase Negative ASSESSMENT/PLAN: 83 year old male with past medical history of Alzheimer's dementia, BPH, HTN, Crohn's disease, CAD, was brought to the ED by her daughters due to worsening dementia, with accompanying visual hallucinations. Patient lives alone at home, frequently "firing" his health aids. He was seen by me in the office two days prior to admission. Reportedly, when his daughter visited the patient on date of admission, his home was noted to be disheveled, with garbage on top of the stove and urine was noted on the kitchen floor. Patient was diagnosed with Alzheimer's dementia more than a year ago, and in the last few months, both the patient and her daughters noted that patient has been having worsening dementia , with the patient needing help in bathing, and would at times get lost in his own home not knowing where the bathroom or kitchen is. Patient also started to have visual hallucinations, seeing people that are not there. He would talk to them, as he is mostly familiar with the people he sees, but they would not reply , or tell them that they are not real and it would go away. Patient denies auditory hallucinations, no change in taste or smell. He denies voices or thoughts telling him to harm himself or others, no blurry vision or healing loss. aat the most recent office visit, we discussed the use of cervical to try to help with his hallucinations and they were in agreement. He is also on Namenda twice a day.. There is a concern about his safety and ability to care for himself. CT had completed and did not show acute changes. Follow up lab results, increased hydration recommended, slightly elevated BUN. Psych consult had been mentioned to family, may be of benefit to have while inpatient. Defer to psych on seroquel vs alternative medication option for Dementia. Can continue Namenda though unclear if providing any noticeable benefit. Monitor blood pressure, maintain normotensive range. Continue statin for hyperlipidemia. Fall precautions, continue using cane.
[2018-08-02] MEDS: ALLOPURINOL 300 MG TABLET (FP) PO SCH (10:50)
[2018-08-02] MEDS: ENOXAPARIN NA (PORCINE) 40 MG/0.4 ML DISP.SYRIN SQ SCH (10:50)
[2018-08-02] MEDS: TERAZOSIN HCL 5 MG CAPSULE PO SCH (12:05)
[2018-08-02] MEDS: azaTHIOprine 50 MG TABLET PO SCH (12:05)
--- NOTE | 2018-08-02 14:27 | EKG ---
Test Reason : Blood Pressure : / mmHG Vent. Rate : 057 BPM Atrial Rate : 057 BPM P-R Int : 152 ms QRS Dur : 066 ms QT Int : 416 ms P-R-T Axes : 018 003 -04 degrees QTc Int : 404 ms SINUS BRADYCARDIA NONSPECIFIC ST ABNORMALITY WHEN COMPARED WITH ECG OF 31-MAR-2018 23:56, NO SIGNIFICANT CHANGE WAS FOUND Confirmed by MILTON GOLDMAN MD ([id number]) on 08/02/2018 2:27:27 PM Referred By: Confirmed By:MILTON GOLDMAN MD
--- NOTE | 2018-08-02 15:06 | PN ---
Teaching Attending Note Name of Resident: Jose Martinez ATTENDING PHYSICIAN STATEMENT I saw and evaluated the patient. I reviewed the resident's note and discussed the case with the resident. I agree with the resident's findings and plan as documented. SUBJECTIVE: Mr Keyes says he feels fine. Denies cp, sob, n/v. Says that he is scared because he sees people that aren't there sometimes but also says he is fine. OBJECTIVE: Last Vital Signs Temp Pulse Resp BP Pulse Ox 36.7 C 86 20 168/76 99 08/02/18 10:00 08/02/18 10:00 08/02/18 10:00 08/02/18 10:00 08/02/18 05:57 Gen: nad Pulm: ctab w/o w/r/r CV: rrr w/o m/r/g Abd: +bs, s/nt/nd Ext: no c/c/e CBC, BMP 08/02/18 06:30 08/02/18 06:30 ASSESSMENT AND PLAN: Problem List - Problems (1) Alzheimer's dementia with behavioral disturbance Assessment/Plan: -with hallucinations -also becoming unstable to live alone -appreciate neurology assistance -psychiatry consulted -suspect will benefit from placement Code(s): G30.9 - ALZHEIMER'S DISEASE, UNSPECIFIED; F02.81 - DEMENTIA IN OTH DISEASES CLASSD [facility] W BEHAVIORAL DISTURB Qualifiers: Alzheimer's disease onset: unspecified onset Qualified Code(s): G30.9 - Alzheimer's disease, unspecified; F02.81 - Dementia in other diseases classified elsewhere with behavioral disturbance (2) HTN (hypertension) Assessment/Plan: -continue toprol xl, accupril, HCTZ Code(s): I10 - ESSENTIAL (PRIMARY) HYPERTENSION (3) BPH (benign prostatic hyperplasia) Assessment/Plan: -continue terazosin Code(s): N40.0 - BENIGN PROSTATIC HYPERPLASIA WITHOUT LOWER URINRY TRACT SYMP (4) Gout Assessment/Plan: -not in exacerbation -continue current management Code(s): M10.9 - GOUT, UNSPECIFIED (5) CAD (coronary artery disease) Assessment/Plan: -quiescent -controlled with medications Code(s): I25.10 - ATHSCL HEART DISEASE OF [place] CORONARY ARTERY W/O ANG PCTRS (6) Crohn's disease Assessment/Plan: -continue mesalamine and imuran Code(s): K50.90 - CROHN'S DISEASE, UNSPECIFIED, WITHOUT COMPLICATIONS
[2018-08-02] MEDS ORDERED: PATIENT'S OWN MEDICATION (NON-FORMULARY) (Quinapril/Hydrochlorothiazide [Accuretic 20-12.5 PO SCH (22:00)
[2018-08-02] MEDS: HYDROCHLOROTHIAZIDE 12.5 MG CAPSULE (FP) PO SCH (23:02)
[2018-08-02] MEDS: QUEtiapine FUMARATE 25 MG TABLET (FP) PO SCH (23:02)
[2018-08-02] MEDS: ATORVASTATIN CA 10 MG TABLET (FP) PO SCH (23:02)
[2018-08-02] MEDS: QUINAPRIL HCL 20 MG TABLET (FP) PO SCH (23:02)
[2018-08-03] MEDS ORDERED: HALOPERIDOL LACTATE 5 MG/ML IM ONE ×2 (00:32→01:15)
[2018-08-03 08:03] LABS: ALBUMIN 3.3 g/dl (3.4-5.0); ALK PHOS 56 U/L (45-117); ANION GAP 3 MMOL/L (8-16); BILIRUBIN,TOTAL 0.9 mg/dL (0.2-1); BLOOD UREA NITROGEN 11 mg/dL (7-18); CALCIUM 8.8 mg/dL (8.5-10.1); CHLORIDE 109 mmol/L (98-107); CO2 29 mmol/L (21-32); GLUCOSE,RANDOM 96 mg/dL (74-106); POTASSIUM 3.9 mmol/L (3.5-5.1); SGOT/AST 21 U/L (15-37); SGPT/ALT 22 U/L (13-61); SODIUM 141 mmol/L (136-145); TOT PROT 5.8 g/dl (6.4-8.2)
[2018-08-03] MEDS ORDERED: PT OWN MED DRAWER 7, Y5N ONE ×2 (11:47→18:18)
[2018-08-03] MEDS: TERAZOSIN HCL 5 MG CAPSULE PO SCH (11:50)
[2018-08-03] MEDS: azaTHIOprine 50 MG TABLET PO SCH (11:51)
[2018-08-03] MEDS: ENOXAPARIN NA (PORCINE) 40 MG/0.4 ML DISP.SYRIN SQ SCH (11:51)
[2018-08-03] MEDS: ALLOPURINOL 300 MG TABLET (FP) PO SCH (11:52)
--- NOTE | 2018-08-03 12:24 | PN ---
Progress Note, Physician Chief Complaint: Mr Keyes is without complaint. Denies cp, sob, n/v. - Current Medication List Current Medications: Active Medications Allopurinol (Zyloprim -) 300 mg PO DAILY [facility] Last Admin: 08/03/18 11:52 Dose: 300 mg Atorvastatin Calcium (Lipitor -) 10 mg PO HS [facility] Last Admin: 08/02/18 23:02 Dose: Not Given Azathioprine (Imuran -) 50 mg PO DAILY [facility] Last Admin: 08/03/18 11:51 Dose: 50 mg Enoxaparin Sodium (Lovenox -) 40 mg SQ DAILY [facility] Last Admin: 08/03/18 11:51 Dose: 40 mg Hydrochlorothiazide (Hctz -) 12.5 mg PO HS [facility] Last Admin: 08/02/18 23:02 Dose: Not Given Metoprolol Succinate (Toprol Xl -) 50 mg PO BID [facility] Last Admin: 08/03/18 11:52 Dose: 50 mg Non-Formulary Medication (Mesalamine [Apriso]) 4 tab PO DAILY [facility] Quetiapine Fumarate (Seroquel -) 25 mg PO [facility] Last Admin: 08/02/18 23:02 Dose: Not Given Quinapril HCl (Accupril -) 20 mg PO [facility] Last Admin: 08/02/18 23:02 Dose: Not Given Terazosin HCl (Hytrin -) 10 mg PO DAILY [facility] Last Admin: 08/03/18 11:50 Dose: 10 mg - Objective Vital Signs: Vital Signs Temperature 36.9 C 08/03/18 05:00 Pulse Rate 52 L 08/03/18 05:00 Respiratory Rate 18 08/03/18 05:00 Blood Pressure 133/64 08/03/18 05:00 O2 Sat by Pulse Oximetry (%) 99 08/02/18 20:52 Constitutional: Yes: Well Nourished, No Distress, Calm Cardiovascular: Yes: Regular Rate and Rhythm. No: Gallop, Murmur, Rub Respiratory: Yes: Regular, CTA Bilaterally. No: Rales, Rhonchi, Wheezes Gastrointestinal: Yes: Normal Bowel Sounds, Soft. No: Distention, Tenderness Extremities: Yes: WNL Edema: No Labs: CBC, BMP 08/02/18 06:30 08/03/18 06:30 INR, PTT INR 1.07 (0.83-1.09) 08/01/18 15:02 Problem List - Problems (1) Alzheimer's dementia with behavioral disturbance Code(s): G30.9 - ALZHEIMER'S DISEASE, UNSPECIFIED; F02.81 - DEMENTIA IN OTH DISEASES CLASSD [facility] W BEHAVIORAL DISTURB Qualifiers: Alzheimer's disease onset: unspecified onset Qualified Code(s): G30.9 - Alzheimer's disease, unspecified; F02.81 - Dementia in other diseases classified elsewhere with behavioral disturbance (2) HTN (hypertension) Code(s): I10 - ESSENTIAL (PRIMARY) HYPERTENSION (3) BPH (benign prostatic hyperplasia) Code(s): N40.0 - BENIGN PROSTATIC HYPERPLASIA WITHOUT LOWER URINRY TRACT SYMP (4) Gout Code(s): M10.9 - GOUT, UNSPECIFIED (5) CAD (coronary artery disease) Code(s): I25.10 - ATHSCL HEART DISEASE OF [place] CORONARY ARTERY W/O ANG PCTRS (6) Crohn's disease Code(s): K50.90 - CROHN'S DISEASE, UNSPECIFIED, WITHOUT COMPLICATIONS Assessment/Plan (1) Alzheimer's dementia with behavioral disturbance Assessment/Plan: -stable -seroquel added -will benefit from placement Code(s): G30.9 - ALZHEIMER'S DISEASE, UNSPECIFIED; F02.81 - DEMENTIA IN OT DISEASES CLASSD [facility] W BEHAVIORAL DISTURB Qualifiers: Alzheimer's disease onset: unspecified onset Qualified Code(s): G30.9 - Alzheimer's disease, unspecified; F02.81 - Dementia in other diseases classified elsewhere with behavioral disturbance (2) HTN (hypertension) Assessment/Plan: -continue toprol xl, accupril, HCTZ Code(s): I10 - ESSENTIAL (PRIMARY) HYPERTENSION (3) BPH (benign prostatic hyperplasia) Assessment/Plan: -continue terazosin Code(s): N40.0 - BENIGN PROSTATIC HYPERPLASIA WITHOUT LOWER URINRY TRACT SYMP (4) Gout Assessment/Plan: -not in exacerbation -continue current management Code(s): M10.9 - GOUT, UNSPECIFIED (5) CAD (coronary artery disease) Assessment/Plan: -quiescent -controlled with medications Code(s): I25.10 - ATHSCL HEART DISEASE OF [place] CORONARY ARTERY W/O ANG PCTRS (6) Crohn's disease Assessment/Plan: -continue mesalamine and imuran Code(s): K50.90 - CROHN'S DISEASE, UNSPECIFIED, WITHOUT COMPLICATIONS
[2018-08-03] MEDS: MESALAMINE PO SCH ×2 (18:18→18:19)
[2018-08-03] MEDS: ATORVASTATIN CA 10 MG TABLET (FP) PO SCH (22:20)
[2018-08-03] MEDS: QUINAPRIL HCL 20 MG TABLET (FP) PO SCH (22:20)
[2018-08-03] MEDS: HYDROCHLOROTHIAZIDE 12.5 MG CAPSULE (FP) PO SCH (22:21)
[2018-08-03] MEDS: QUEtiapine FUMARATE 25 MG TABLET (FP) PO SCH (22:21)
[2018-08-03] MEDS ORDERED: LORazepam 2 MG/ML SDV VIAL IM ONE (22:41)
[2018-08-04] MEDS ORDERED: HALOPERIDOL LACTATE 5 MG/ML IM ONE (00:38)
[2018-08-04] MEDS ORDERED: PT OWN MED DRAWER 7, Y5N ONE (09:06)
[2018-08-04] MEDS: MESALAMINE PO SCH (10:36)
[2018-08-04] MEDS: azaTHIOprine 50 MG TABLET PO SCH (10:37)
[2018-08-04] MEDS: TERAZOSIN HCL 5 MG CAPSULE PO SCH (10:37)
[2018-08-04] MEDS: ALLOPURINOL 300 MG TABLET (FP) PO SCH (10:38)
[2018-08-04] MEDS: ENOXAPARIN NA (PORCINE) 40 MG/0.4 ML DISP.SYRIN SQ SCH (10:39)
--- NOTE | 2018-08-04 12:33 | PN ---
Progress Note, Physician Chief Complaint: Mr Keyes says he feels fine. Denies cp, sob, n/v. - Current Medication List Current Medications: Active Medications Allopurinol (Zyloprim -) 300 mg PO DAILY [facility] Last Admin: 08/04/18 10:38 Dose: 300 mg Atorvastatin Calcium (Lipitor -) 10 mg PO [facility] Last Admin: 08/03/18 22:20 Dose: 10 mg Azathioprine (Imuran -) 50 mg PO DAILY [facility] Last Admin: 08/04/18 10:37 Dose: 50 mg Enoxaparin Sodium (Lovenox -) 40 mg SQ DAILY [facility] Last Admin: 08/04/18 10:39 Dose: 40 mg Hydrochlorothiazide (Hctz -) 12.5 mg PO [facility] Last Admin: 08/03/18 22:21 Dose: 12.5 mg Metoprolol Succinate (Toprol Xl -) 50 mg PO BID [facility] Last Admin: 08/04/18 10:38 Dose: 50 mg Non-Formulary Medication (Mesalamine [Apriso]) 4 tab PO DAILY [facility] Last Admin: 08/04/18 10:36 Dose: 4 tab Quetiapine Fumarate (Seroquel -) 25 mg PO [facility] Last Admin: 08/03/18 22:21 Dose: 25 mg Quinapril HCl (Accupril -) 20 mg PO [facility] Last Admin: 08/03/18 22:20 Dose: 20 mg Terazosin HCl (Hytrin -) 10 mg PO DAILY [facility] Last Admin: 08/04/18 10:37 Dose: 10 mg - Objective Vital Signs: Vital Signs Temperature 36.9 C 08/04/18 05:39 Pulse Rate 59 L 08/04/18 05:39 Respiratory Rate 18 08/04/18 05:39 Blood Pressure 118/61 08/04/18 05:39 O2 Sat by Pulse Oximetry (%) 99 08/04/18 05:00 Constitutional: Yes: Well Nourished, No Distress, Calm Cardiovascular: Yes: Regular Rate and Rhythm. No: Gallop, Murmur, Rub Respiratory: Yes: Regular, CTA Bilaterally. No: Rales, Rhonchi, Wheezes Gastrointestinal: Yes: Normal Bowel Sounds, Soft. No: Distention, Tenderness Extremities: Yes: WNL Edema: No Labs: CBC, BMP 08/02/18 06:30 08/03/18 06:30 INR, PTT INR 1.07 (0.83-1.09) 08/01/18 15:02 Problem List - Problems (1) Alzheimer's dementia with behavioral disturbance Code(s): G30.9 - ALZHEIMER'S DISEASE, UNSPECIFIED; F02.81 - DEMENTIA IN OTH DISEASES CLASSD [place] W BEHAVIORAL DISTURB Qualifiers: Alzheimer's disease onset: unspecified onset Qualified Code(s): G30.9 - Alzheimer's disease, unspecified; F02.81 - Dementia in other diseases classified elsewhere with behavioral disturbance (2) HTN (hypertension) Code(s): I10 - ESSENTIAL (PRIMARY) HYPERTENSION (3) BPH (benign prostatic hyperplasia) Code(s): N40.0 - BENIGN PROSTATIC HYPERPLASIA WITHOUT LOWER URINRY TRACT SYMP (4) Gout Code(s): M10.9 - GOUT, UNSPECIFIED (5) CAD (coronary artery disease) Code(s): I25.10 - ATHSCL HEART DISEASE OF [place] CORONARY ARTERY W/O ANG PCTRS (6) Crohn's disease Code(s): K50.90 - CROHN'S DISEASE, UNSPECIFIED, WITHOUT COMPLICATIONS Assessment/Plan (1) Alzheimer's dementia with behavioral disturbance Assessment/Plan: -stable -continue seroquel Code(s): G30.9 - ALZHEIMER'S DISEASE, UNSPECIFIED; F02.81 - DEMENTIA IN OT DISEASES CLASSD [facility] W BEHAVIORAL DISTURB Qualifiers: Alzheimer's disease onset: unspecified onset Qualified Code(s): G30.9 - Alzheimer's disease, unspecified; F02.81 - Dementia in other diseases classified elsewhere with behavioral disturbance (2) HTN (hypertension) Assessment/Plan: -continue toprol xl, accupril, HCTZ Code(s): I10 - ESSENTIAL (PRIMARY) HYPERTENSION (3) BPH (benign prostatic hyperplasia) Assessment/Plan: -continue terazosin Code(s): N40.0 - BENIGN PROSTATIC HYPERPLASIA WITHOUT LOWER URINRY TRACT SYMP (4) Gout Assessment/Plan: -not in exacerbation -continue current management Code(s): M10.9 - GOUT, UNSPECIFIED (5) CAD (coronary artery disease) Assessment/Plan: -quiescent -controlled with medications Code(s): I25.10 - ATHSCL HEART DISEASE OF [place] CORONARY ARTERY W/O ANG PCTRS (6) Crohn's disease Assessment/Plan: -continue mesalamine and imuran Code(s): K50.90 - CROHN'S DISEASE, UNSPECIFIED, WITHOUT COMPLICATIONS
[2018-08-04] MEDS ORDERED: INSULIN (NOVOLOG) ASPART 100 UNITS/ML 10ML VIAL ONE (21:23)
[2018-08-04] MEDS ORDERED: HALOPERIDOL LACTATE 5 MG/ML IVPUSH ONE (22:37)
[2018-08-04] MEDS: QUINAPRIL HCL 20 MG TABLET (FP) PO SCH (23:16)
[2018-08-04] MEDS: QUEtiapine FUMARATE 25 MG TABLET (FP) PO SCH (23:16)
[2018-08-04] MEDS: HYDROCHLOROTHIAZIDE 12.5 MG CAPSULE (FP) PO SCH (23:16)
[2018-08-04] MEDS: ATORVASTATIN CA 10 MG TABLET (FP) PO SCH (23:16)
--- NOTE | 2018-08-05 09:40 | PN ---
Progress Note (short form) - Note Progress Note: Neurology HISTORY OF PRESENT ILLNESS: 83 year old male with past medical history of Alzheimer's dementia, BPH, HTN, Crohn's disease, CAD, was brought to the ED by her daughters due to worsening dementia, with accompanying visual hallucinations. Patient lives alone at home, frequently "firing" his health aids. He was seen by me in the office two days prior to admission. Reportedly, when his daughter visited the patient on date of admission, his home was noted to be disheveled, with garbage on top of the stove and urine was noted on the kitchen floor. Patient was diagnosed with Alzheimer's dementia more than a year ago, and in the last few months, both the patient and her daughters noted that patient has been having worsening dementia , with the patient needing help in bathing, and would at times get lost in his own home not knowing where the bathroom or kitchen is. Patient also started to have visual hallucinations, seeing people that are not there. He would talk to them, as he is mostly familiar with the people he sees, but they would not reply , or tell them that they are not real and it would go away. Patient denies auditory hallucinations, no change in taste or smell. He denies voices or thoughts telling him to harm himself or others, no blurry vision or healing loss. aat the most recent office visit, we discussed the use of cervical to try to help with his hallucinations and they were in agreement. He is also on Namenda twice a day.. There is a concern about his safety and ability to care for himself. CT had completed and did not show acute changes. In [place] this morning but is reasonable, knows location but does not know date or name of president. Seen with PCP at bedside, plan is for placement. Active Medications Allopurinol (Zyloprim -) 300 mg PO DAILY [facility] Last Admin: 08/04/18 10:38 Dose: 300 mg Atorvastatin Calcium (Lipitor -) 10 mg PO HS [facility] Last Admin: 08/04/18 23:16 Dose: 10 mg Azathioprine (Imuran -) 50 mg PO DAILY [facility] Last Admin: 08/04/18 10:37 Dose: 50 mg Enoxaparin Sodium (Lovenox -) 40 mg SQ DAILY [facility] Last Admin: 08/04/18 10:39 Dose: 40 mg Hydrochlorothiazide (Hctz -) 12.5 mg PO [facility] Last Admin: 08/04/18 23:16 Dose: 12.5 mg Metoprolol Succinate (Toprol Xl -) 50 mg PO BID [facility] Last Admin: 08/04/18 23:16 Dose: 50 mg Non-Formulary Medication (Mesalamine [Apriso]) 4 tab PO DAILY [facility] Last Admin: 08/04/18 10:36 Dose: 4 tab Quetiapine Fumarate (Seroquel -) 25 mg PO [facility] Last Admin: 08/04/18 23:16 Dose: 25 mg Quinapril HCl (Accupril -) 20 mg PO [facility] Last Admin: 08/04/18 23:16 Dose: 20 mg Terazosin HCl (Hytrin -) 10 mg PO DAILY [facility] Last Admin: 08/04/18 10:37 Dose: 10 mg PHYSICAL EXAMINATION Vital Signs Period Temp Pulse Resp BP Sys/Lobo Pulse Ox Last 24 Hr 98.1 F-98.3 F 53-81 16-20 101-158/54-80 99-100 GENERAL: Awake, alert, and oriented to person and place, in no acute distress. HEAD: Normal with no signs of trauma. EYES: PERRLA, EOMI, sclera anicteric, conjunctiva clear. EARS, NOSE, THROAT: Ears normal, oropharynx clear without exudates. Moist mucous membranes. NECK: Normal range of motion, supple without lymphadenopathy, JVD, or masses. LUNGS: Breath sounds equal, clear to auscultation bilaterally. HEART: Regular rate and rhythm, normal S1 and S2 without murmur, rub or gallop. ABDOMEN: Soft, nontender, not distended, normoactive bowel sounds. MUSCULOSKELETAL: Normal range of motion at all joints.No CVA tenderness. UPPER EXTREMITIES: 2+ pulses, warm, well-perfused. No peripheral edema. LOWER EXTREMITIES: 2+ pulses, warm, well-perfused. No peripheral edema. NEUROLOGICAL: AAOX2, Cranial nerves II-XII intact. Motor strength 5/5, sensation intact on all extremities. No dysmetria, no dysdiadochokinesia. Normal speech. Uses a cane to ambulate. PSYCHIATRIC: Cooperative. Good eye contact. Appropriate mood and affect. SKIN: Warm, dry, normal turgor, no rashes or lesions noted. CBCD WBC 5.7 K/mm3 (4.0-10.0) 08/02/18 06:30 RBC 3.28 M/mm3 (4.00-5.60) L 08/02/18 06:30 Hgb 12.0 GM/dL (11.7-16.9) 08/02/18 06:30 Hct 33.7 % (35.4-49) L 08/02/18 06:30 MCV 102.9 fl (80-96) H 08/02/18 06:30 MCHC 35.4 g/dl (32.0-35.9) 08/02/18 06:30 RDW 14.3 % (11.9-15.9) 08/02/18 06:30 Plt Count 176 K/MM3 (134-434) 08/02/18 06:30 MPV 8.9 fl (7.5-11.1) 08/02/18 06:30 CMP Sodium 141 mmol/L (136-145) 08/03/18 06:30 Potassium 3.9 mmol/L (3.5-5.1) 08/03/18 06:30 Chloride 109 mmol/L (98-107) H 08/03/18 06:30 Carbon Dioxide 29 mmol/L (21-32) 08/03/18 06:30 Anion Gap 3 MMOL/L (8-16) L 08/03/18 06:30 BUN 11 mg/dL (7-18) 08/03/18 06:30 Creatinine 1.0 mg/dL (0.55-1.3) 08/03/18 06:30 Creat Clearance w eGFR > 60 (>60) 08/03/18 06:30 Random Glucose 96 mg/dL (74-106) 08/03/18 06:30 Calcium 8.8 mg/dL (8.5-10.1) 08/03/18 06:30 Total Bilirubin 0.9 mg/dL (0.2-1) 08/03/18 06:30 AST 21 U/L (15-37) 08/03/18 06:30 ALT 22 U/L (13-61) 08/03/18 06:30 Alkaline Phosphatase 56 U/L (45-117) 08/03/18 06:30 Total Protein 5.8 g/dl (6.4-8.2) L 08/03/18 06:30 Albumin 3.3 g/dl (3.4-5.0) L 08/03/18 06:30 CARDIAC ENZYMES Troponin I 0.02 ng/ml (0.00-0.05) 08/01/18 15:02 ASSESSMENT/PLAN: 83 year old male with past medical history of Alzheimer's dementia, BPH, HTN, Crohn's disease, CAD, was brought to the ED by her daughters due to worsening dementia, with accompanying visual hallucinations. Patient lives alone at home, frequently "firing" his health aids. He was seen by me in the office two days prior to admission. Reportedly, when his daughter visited the patient on date of admission, his home was noted to be disheveled, with garbage on top of the stove and urine was noted on the kitchen floor. Patient was diagnosed with Alzheimer's dementia more than a year ago, and in the last few months, both the patient and her daughters noted that patient has been having worsening dementia , with the patient needing help in bathing, and would at times get lost in his own home not knowing where the bathroom or kitchen is. Patient also started to have visual hallucinations, seeing people that are not there. He would talk to them, as he is mostly familiar with the people he sees, but they would not reply , or tell them that they are not real and it would go away. Patient denies auditory hallucinations, no change in taste or smell. He denies voices or thoughts telling him to harm himself or others, no blurry vision or healing loss. aat the most recent office visit, we discussed the use of cervical to try to help with his hallucinations and they were in agreement. He is also on Namenda twice a day.. There is a concern about his safety and ability to care for himself. CT had completed and did not show acute changes. In [place] this morning but is reasonable, knows location but does not know date or name of president. Seen with PCP at bedside, plan is for placement. No psych eval noted , may be of benefit. Can continue Namenda though unclear if providing any noticeable benefit. Monitor blood pressure, maintain normotensive range. Continue statin for hyperlipidemia. Fall precautions, continue using cane.
[2018-08-05] MEDS ORDERED: PT OWN MED DRAWER 7, Y5N ONE ×2 (10:27→12:08)
[2018-08-05] MEDS: ALLOPURINOL 300 MG TABLET (FP) PO SCH (11:12)
[2018-08-05] MEDS: azaTHIOprine 50 MG TABLET PO SCH (11:12)
[2018-08-05] MEDS: ENOXAPARIN NA (PORCINE) 40 MG/0.4 ML DISP.SYRIN SQ SCH (11:12)
[2018-08-05] MEDS: MESALAMINE PO SCH (11:14)
[2018-08-05] MEDS: TERAZOSIN HCL 5 MG CAPSULE PO SCH (11:16)
--- NOTE | 2018-08-05 11:35 | PN ---
Progress Note, Physician Chief Complaint: Mr Keyes denies cp, sob, n/v. Remains confused. - Current Medication List Current Medications: Active Medications Allopurinol (Zyloprim -) 300 mg PO DAILY [facility] Last Admin: 08/05/18 11:12 Dose: 300 mg Atorvastatin Calcium (Lipitor -) 10 mg PO HS [facility] Last Admin: 08/04/18 23:16 Dose: 10 mg Azathioprine (Imuran -) 50 mg PO DAILY [facility] Last Admin: 08/05/18 11:12 Dose: 50 mg Enoxaparin Sodium (Lovenox -) 40 mg SQ DAILY [facility] Last Admin: 08/05/18 11:12 Dose: 40 mg Hydrochlorothiazide (Hctz -) 12.5 mg PO HS [facility] Last Admin: 08/04/18 23:16 Dose: 12.5 mg Metoprolol Succinate (Toprol Xl -) 50 mg PO BID [facility] Last Admin: 08/05/18 11:12 Dose: 50 mg Non-Formulary Medication (Mesalamine [Apriso]) 4 tab PO DAILY [facility] Last Admin: 08/05/18 11:14 Dose: 4 tab Quetiapine Fumarate (Seroquel -) 25 mg PO HS [facility] Last Admin: 08/04/18 23:16 Dose: 25 mg Quinapril HCl (Accupril -) 20 mg PO HS [facility] Last Admin: 08/04/18 23:16 Dose: 20 mg Terazosin HCl (Hytrin -) 10 mg PO DAILY [facility] Last Admin: 08/05/18 11:16 Dose: 10 mg - Objective Vital Signs: Vital Signs Temperature 36.7 C 08/05/18 06:00 Pulse Rate 77 08/05/18 06:00 Respiratory Rate 17 08/05/18 06:00 Blood Pressure 131/80 08/05/18 06:00 O2 Sat by Pulse Oximetry (%) 99 08/05/18 05:00 Constitutional: Yes: Well Nourished, No Distress, Calm Cardiovascular: Yes: Regular Rate and Rhythm. No: Gallop, Murmur, Rub Respiratory: Yes: Regular, CTA Bilaterally. No: Rales, Rhonchi, Wheezes Gastrointestinal: Yes: Normal Bowel Sounds, Soft. No: Distention, Tenderness Extremities: Yes: WNL Edema: No Labs: CBC, BMP 08/02/18 06:30 08/03/18 06:30 INR, PTT INR 1.07 (0.83-1.09) 08/01/18 15:02 Problem List - Problems (1) Alzheimer's dementia with behavioral disturbance Code(s): G30.9 - ALZHEIMER'S DISEASE, UNSPECIFIED; F02.81 - DEMENTIA IN OTH DISEASES CLASSD [place] W BEHAVIORAL DISTURB Qualifiers: Alzheimer's disease onset: unspecified onset Qualified Code(s): G30.9 - Alzheimer's disease, unspecified; F02.81 - Dementia in other diseases classified elsewhere with behavioral disturbance (2) HTN (hypertension) Code(s): I10 - ESSENTIAL (PRIMARY) HYPERTENSION (3) BPH (benign prostatic hyperplasia) Code(s): N40.0 - BENIGN PROSTATIC HYPERPLASIA WITHOUT LOWER URINRY TRACT SYMP (4) Gout Code(s): M10.9 - GOUT, UNSPECIFIED (5) CAD (coronary artery disease) Code(s): I25.10 - ATHSCL HEART DISEASE OF [place] CORONARY ARTERY W/O ANG PCTRS (6) Crohn's disease Code(s): K50.90 - CROHN'S DISEASE, UNSPECIFIED, WITHOUT COMPLICATIONS Assessment/Plan (1) Alzheimer's dementia with behavioral disturbance Assessment/Plan: -stable -continue seroquel -neurology note reviewed -awaiting psychiatry recommendations Code(s): G30.9 - ALZHEIMER'S DISEASE, UNSPECIFIED; F02.81 - [facility] Qualifiers: Alzheimer's disease onset: unspecified onset Qualified Code(s): G30.9 - Alzheimer's disease, unspecified; F02.81 - Dementia in other diseases classified elsewhere with behavioral disturbance (2) HTN (hypertension) Assessment/Plan: -continue toprol xl, accupril, HCTZ Code(s): I10 - ESSENTIAL (PRIMARY) HYPERTENSION (3) BPH (benign prostatic hyperplasia) Assessment/Plan: -continue terazosin Code(s): N40.0 - BENIGN PROSTATIC HYPERPLASIA WITHOUT LOWER URINRY TRACT SYMP (4) Gout Assessment/Plan: -not in exacerbation -continue current management Code(s): M10.9 - GOUT, UNSPECIFIED (5) CAD (coronary artery disease) Assessment/Plan: -quiescent -controlled with medications Code(s): I25.10 - ATHSCL HEART DISEASE OF [place] CORONARY ARTERY W/O ANG PCTRS (6) Crohn's disease Assessment/Plan: -continue mesalamine and imuran Code(s): K50.90 - CROHN'S DISEASE, UNSPECIFIED, WITHOUT COMPLICATIONS
--- NOTE | 2018-08-05 14:11 | CON.PSY ---
Psychiatry Consult Chief Complaint: 83 year old male qwith a history of DEmentia seen for hallucinations and aggressive behaviour at night. Symptoms: reports: Impaired Concentration, Aggressivity, Impulsivity - Previous Psychiatric Treatment Outpatient: None Inpatient: None - Previous Substance Abuse Treatment Outpatient: None Inpatient: None - Current Medications Current Medications: Active Medications Allopurinol (Zyloprim -) 300 mg PO DAILY [facility] Last Admin: 08/05/18 11:12 Dose: 300 mg Atorvastatin Calcium (Lipitor -) 10 mg PO [facility] Last Admin: 08/04/18 23:16 Dose: 10 mg Azathioprine (Imuran -) 50 mg PO DAILY [facility] Last Admin: 08/05/18 11:12 Dose: 50 mg Enoxaparin Sodium (Lovenox -) 40 mg SQ DAILY [facility] Last Admin: 08/05/18 11:12 Dose: 40 mg Hydrochlorothiazide (Hctz -) 12.5 mg PO HS [facility] Last Admin: 08/04/18 23:16 Dose: 12.5 mg Metoprolol Succinate (Toprol Xl -) 50 mg PO BID [facility] Last Admin: 08/05/18 11:12 Dose: 50 mg Non-Formulary Medication (Mesalamine [Apriso]) 4 tab PO DAILY [facility] Last Admin: 08/05/18 11:14 Dose: 4 tab Olanzapine (Zyprexa -) 5 mg PO [facility] Quinapril HCl (Accupril -) 20 mg PO HS [facility] Last Admin: 08/04/18 23:16 Dose: 20 mg Terazosin HCl (Hytrin -) 10 mg PO DAILY [facility] Last Admin: 08/05/18 11:16 Dose: 10 mg - Allergies Allergies: Allergies Allergy/AdvReac Type Severity Reaction Status Date / Time No Known Drug Allergies Allergy Verified 03/31/18 16:39 - Current Living Status Usual Living Arrangement: With Spouse - Current Mental Status Evaluation Appearance: Disheveled Attitude: Guarded - Affect Affect: Constrictive Appropriateness: Not Appropriate - Mood Mood: Irritable - Speech/Language Expressive: Delayed - Psychomotor Activity Psychomotor Activity: Hyperactive - Thought Process Thought Process: Circumstantial - Thought Content Hallucinations: Absent Type: Visual Delusions: Absent - Self Perception Self Perception: Depersonalization - Cognition Attention: Diminished Memory, Immediate Recall: Impaired Memory, Short Term: 2/3 Memory, Remote with Promptin/3 - Concentration Serial Sevens Intact: No Simple Calculations Intact: No - Abstraction Proverb Interpretation: Impaired Judgement: Moderately Impaired - Insight Insight: Impaired - Impulse Control Impulse Control: Moderately Impaired - Suicidal Ideation Suicidal Ideation: No - Homicidal Ideation Homicidal Ideation: No Assessment/Plan 1) d/c Seroquel. 2) Zyprexa 5mg hs
--- NOTE | 2018-08-05 19:15 | PN ---
Physical Exam: SUBJECTIVE: Patient seen and examined; no complaints , no hallucination OBJECTIVE: Vital Signs Period Temp Pulse Resp BP Sys/Lobo Pulse Ox Last 24 Hr 97.7 F-98.2 F 64-81 17-67 119-154/64-80 99-100 GENERAL: The patient is awake, alert, and fully oriented, in no acute distress. LUNGS: Breath sounds equal, clear to auscultation bilaterally, no wheezes, no crackles, no accessory muscle use. HEART: Regular rate and rhythm, S1, S2 without murmur, rub or gallop. ABDOMEN: Soft, nontender, nondistended, normoactive bowel sounds, no guarding, no rebound, no hepatosplenomegaly, no masses. EXTREMITIES: 2+ pulses, warm, well-perfused, no edema. NEUROLOGICAL: dementia Active Medications Generic Name Dose Route Start Last Admin Trade Name Freq PRN Reason Stop Dose Admin Allopurinol 300 mg 08/02/18 10:00 08/05/18 11:12 Zyloprim - PO 300 mg DAILY [facility]ENT Administration Atorvastatin Calcium 10 mg 08/02/18 22:00 08/04/18 23:16 Lipitor - PO 10 mg HS TRENT Administration Azathioprine 50 mg 08/02/18 10:00 08/05/18 11:12 Imuran - PO 50 mg DAILY [facility]ENT Administration Enoxaparin Sodium 40 mg 08/02/18 10:00 08/05/18 11:12 Lovenox - SQ 40 mg DAILY [facility]ENT Administration Hydrochlorothiazide 12.5 mg 08/02/18 22:00 08/04/18 23:16 Hctz - PO 12.5 mg HS TRENT Administration Metoprolol Succinate 50 mg 08/02/18 10:00 08/05/18 11:12 Toprol Xl - PO 50 mg BID [facility] Administration Non-Formulary Medication 4 tab 08/02/18 10:00 08/05/18 11:14 Mesalamine [Apriso] PO 4 tab DAILY TRENT Administration Olanzapine 5 mg 08/05/18 22:00 Zyprexa - PO HS TRENT Quinapril HCl 20 mg 08/02/18 22:00 08/04/18 23:16 Accupril - PO 20 mg HS TRENT Administration Terazosin HCl 10 mg 08/02/18 10:00 08/05/18 11:16 Hytrin - PO 10 mg DAILY TRENT Administration ASSESSMENT/PLAN: Patient is an 83 year old male with past medical history of Alzheimer's dementia , BPH, HTN, Crohn's disease, CAD, was brought to the ED by her daughters due to worsening dementia, with accompanying visual hallucinations. #AMS, visual hallucinations: likely 2/2 Alzheimer's dementia -neuro w/u -Psychiatry consult -d/c/d seroqul ; -start zyprexa -hold off on restraints so patient can be cleared for NH #Crohn's Disease: chronic -Continue Mesalamine 4mg -Azathioprine 50mg daily #BPH -Continue Terazosin 10mg daily #HTN -Continue home Toprol XL 50mg BID -Quinapril/HCTZ 20/12.5 #HLD -Continue Lipitor 40mg PO HS #Prophylaxis -Lovenox 40mg sq daily Visit type - Emergency Visit Emergency Visit: Yes ED Registration Date: 08/01/18 Care time: The patient presented to the Emergency Department on the above date and was hospitalized for further evaluation of their emergent condition. - New Patient This patient is new to me today: Yes Date on this admission: 08/05/18 - Critical Care Critical Care patient: No
[2018-08-05] MEDS: HYDROCHLOROTHIAZIDE 12.5 MG CAPSULE (FP) PO SCH (21:51)
[2018-08-05] MEDS: ATORVASTATIN CA 10 MG TABLET (FP) PO SCH (21:51)
[2018-08-05] MEDS: QUINAPRIL HCL 20 MG TABLET (FP) PO SCH (21:52)
[2018-08-05] MEDS ORDERED: OLANZapine 5 MG TABLET PO SCH (22:00)
[2018-08-06 07:22] LABS: BASO % 0.7 % (0-2.0); EOS % 2.1 % (0-4.5); HEMATOCRIT 36.6 % (35.4-49); HEMOGLOBIN 12.9 GM/dL (11.7-16.9); LYMPH % 16.9 % (8-40); MCH 35.8 pg (25.7-33.7); MCHC 35.1 g/dl (32.0-35.9); MEAN CELL VOLUME 101.9 fl (80-96); MEAN PLT VOLUME 8.3 fl (7.5-11.1); MONO % 9.1 % (3.8-10.2); NEUT % 71.2 % (42.8-82.8); PLATELET COUNT 213 K/MM3 (134-434); RDW 14.5 % (11.9-15.9); WHITE BLOOD COUNT 5.1 K/mm3 (4.0-10.0)
[2018-08-06 07:48] LABS: ANION GAP 6 MMOL/L (8-16); BLOOD UREA NITROGEN 17 mg/dL (7-18); CALCIUM 8.9 mg/dL (8.5-10.1); CHLORIDE 108 mmol/L (98-107); CO2 29 mmol/L (21-32); CREATININE 0.9 mg/dL (0.55-1.3); GLUCOSE,RANDOM 103 mg/dL (74-106); MAGNESIUM 2.2 mg/dL (1.8-2.4); PHOSPHOROUS 3.4 mg/dL (2.5-4.9); POTASSIUM 3.8 mmol/L (3.5-5.1); SODIUM 144 mmol/L (136-145)
--- NOTE | 2018-08-06 09:11 | PN ---
Progress Note (short form) - Note Progress Note: Neurology HISTORY OF PRESENT ILLNESS: 83 year old male with past medical history of Alzheimer's dementia, BPH, HTN, Crohn's disease, CAD, was brought to the ED by her daughters due to worsening dementia, with accompanying visual hallucinations. Patient lives alone at home, frequently "firing" his health aids. He was seen by me in the office two days prior to admission. Reportedly, when his daughter visited the patient on date of admission, his home was noted to be disheveled, with garbage on top of the stove and urine was noted on the kitchen floor. Patient was diagnosed with Alzheimer's dementia more than a year ago, and in the last few months, both the patient and her daughters noted that patient has been having worsening dementia , with the patient needing help in bathing, and would at times get lost in his own home not knowing where the bathroom or kitchen is. Patient also started to have visual hallucinations, seeing people that are not there. He would talk to them, as he is mostly familiar with the people he sees, but they would not reply , or tell them that they are not real and it would go away. Patient denies auditory hallucinations, no change in taste or smell. He denies voices or thoughts telling him to harm himself or others, no blurry vision or healing loss. aat the most recent office visit, we discussed the use of cervical to try to help with his hallucinations and they were in agreement. He is also on Namenda twice a day.. There is a concern about his safety and ability to care for himself. CT had completed and did not show acute changes. This morning sitting in hallway in wheelchair, comfortable, calm, cooperative. Psych note reviewed, d/c seroquel recommended and start Zyprexa. Continue to monitor mental status. Active Medications Allopurinol (Zyloprim -) 300 mg PO DAILY [facility] Last Admin: 08/05/18 11:12 Dose: 300 mg Atorvastatin Calcium (Lipitor -) 10 mg PO HS [facility] Last Admin: 08/05/18 21:51 Dose: 10 mg Azathioprine (Imuran -) 50 mg PO DAILY [facility] Last Admin: 08/05/18 11:12 Dose: 50 mg Enoxaparin Sodium (Lovenox -) 40 mg SQ DAILY [facility] Last Admin: 08/05/18 11:12 Dose: 40 mg Hydrochlorothiazide (Hctz -) 12.5 mg PO [facility] Last Admin: 08/05/18 21:51 Dose: 12.5 mg Metoprolol Succinate (Toprol Xl -) 50 mg PO BID [facility] Last Admin: 08/05/18 21:52 Dose: 50 mg Non-Formulary Medication (Mesalamine [Apriso]) 4 tab PO DAILY [facility] Last Admin: 08/05/18 11:14 Dose: 4 tab Olanzapine (Zyprexa -) 5 mg PO [facility] Last Admin: 08/05/18 21:53 Dose: 5 mg Quinapril HCl (Accupril -) 20 mg PO HS [facility] Last Admin: 08/05/18 21:52 Dose: 20 mg Terazosin HCl (Hytrin -) 10 mg PO DAILY [facility] Last Admin: 08/05/18 11:16 Dose: 10 mg PHYSICAL EXAMINATION Vital Signs Period Temp Pulse Resp BP Sys/Lobo Pulse Ox Last 24 Hr 97.7 F-98.4 F 58-70 18-67 119-156/64-81 96-100 GENERAL: Awake, alert, and oriented to person and place, in no acute distress. HEAD: Normal with no signs of trauma. EYES: PERRLA, EOMI, sclera anicteric, conjunctiva clear. EARS, NOSE, THROAT: Ears normal, oropharynx clear without exudates. Moist mucous membranes. NECK: Normal range of motion, supple without lymphadenopathy, JVD, or masses. LUNGS: Breath sounds equal, clear to auscultation bilaterally. HEART: Regular rate and rhythm, normal S1 and S2 without murmur, rub or gallop. ABDOMEN: Soft, nontender, not distended, normoactive bowel sounds. MUSCULOSKELETAL: Normal range of motion at all joints.No CVA tenderness. UPPER EXTREMITIES: 2+ pulses, warm, well-perfused. No peripheral edema. LOWER EXTREMITIES: 2+ pulses, warm, well-perfused. No peripheral edema. NEUROLOGICAL: AAOX2, Cranial nerves II-XII intact. Motor strength 5/5, sensation intact on all extremities. No dysmetria, no dysdiadochokinesia. Normal speech. Uses a cane to ambulate. PSYCHIATRIC: Cooperative. Good eye contact. Appropriate mood and affect. SKIN: Warm, dry, normal turgor, no rashes or lesions noted. CBCD WBC 5.1 K/mm3 (4.0-10.0) 08/06/18 06:25 RBC 3.60 M/mm3 (4.00-5.60) L 08/06/18 06:25 Hgb 12.9 GM/dL (11.7-16.9) 08/06/18 06:25 Hct 36.6 % (35.4-49) 08/06/18 06:25 MCV 101.9 fl (80-96) H 08/06/18 06:25 MCHC 35.1 g/dl (32.0-35.9) 08/06/18 06:25 RDW 14.5 % (11.9-15.9) 08/06/18 06:25 Plt Count 213 K/MM3 (134-434) D 08/06/18 06:25 MPV 8.3 fl (7.5-11.1) 08/06/18 06:25 CMP Sodium 144 mmol/L (136-145) 08/06/18 06:25 Potassium 3.8 mmol/L (3.5-5.1) 08/06/18 06:25 Chloride 108 mmol/L (98-107) H 08/06/18 06:25 Carbon Dioxide 29 mmol/L (21-32) 08/06/18 06:25 Anion Gap 6 MMOL/L (8-16) L 08/06/18 06:25 BUN 17 mg/dL (7-18) 08/06/18 06:25 Creatinine 0.9 mg/dL (0.55-1.3) 08/06/18 06:25 Creat Clearance w eGFR > 60 (>60) 08/06/18 06:25 Random Glucose 103 mg/dL (74-106) 08/06/18 06:25 Calcium 8.9 mg/dL (8.5-10.1) 08/06/18 06:25 Total Bilirubin 0.9 mg/dL (0.2-1) 08/03/18 06:30 AST 21 U/L (15-37) 08/03/18 06:30 ALT 22 U/L (13-61) 08/03/18 06:30 Alkaline Phosphatase 56 U/L (45-117) 08/03/18 06:30 Total Protein 5.8 g/dl (6.4-8.2) L 08/03/18 06:30 Albumin 3.3 g/dl (3.4-5.0) L 08/03/18 06:30 CARDIAC ENZYMES Troponin I 0.02 ng/ml (0.00-0.05) 08/01/18 15:02 ASSESSMENT/PLAN: 83 year old male with past medical history of Alzheimer's dementia, BPH, HTN, Crohn's disease, CAD, was brought to the ED by her daughters due to worsening dementia, with accompanying visual hallucinations. Patient lives alone at home, frequently "firing" his health aids. He was seen by me in the office two days prior to admission. Reportedly, when his daughter visited the patient on date of admission, his home was noted to be disheveled, with garbage on top of the stove and urine was noted on the kitchen floor. Patient was diagnosed with Alzheimer's dementia more than a year ago, and in the last few months, both the patient and her daughters noted that patient has been having worsening dementia , with the patient needing help in bathing, and would at times get lost in his own home not knowing where the bathroom or kitchen is. Patient also started to have visual hallucinations, seeing people that are not there. He would talk to them, as he is mostly familiar with the people he sees, but they would not reply , or tell them that they are not real and it would go away. Patient denies auditory hallucinations, no change in taste or smell. He denies voices or thoughts telling him to harm himself or others, no blurry vision or healing loss. aat the most recent office visit, we discussed the use of cervical to try to help with his hallucinations and they were in agreement. He is also on Namenda twice a day.. There is a concern about his safety and ability to care for himself. CT had completed and did not show acute changes. Plan is for placement. Psych note reviewed, d/c seroquel recommended and start Zyprexa, discussed with PCP, continue to monitor. Can continue Namenda though unclear if providing any noticeable benefit. Monitor blood pressure, maintain normotensive range. Continue statin for hyperlipidemia. Fall precautions, continue using cane. Case management follow up for placement.
[2018-08-06] MEDS: ALLOPURINOL 300 MG TABLET (FP) PO SCH (09:53)
[2018-08-06] MEDS: ENOXAPARIN NA (PORCINE) 40 MG/0.4 ML DISP.SYRIN SQ SCH (09:53)
[2018-08-06] MEDS: azaTHIOprine 50 MG TABLET PO SCH (09:54)
[2018-08-06] MEDS: MESALAMINE PO SCH (09:55)
[2018-08-06] MEDS: TERAZOSIN HCL 5 MG CAPSULE PO SCH (09:55)
[2018-08-06 13:40] VITALS: BP 128/62; PULSE 66; TEMP 97.8
--- NOTE | 2018-08-06 16:16 | PN ---
Teaching Attending Note Name of Resident: Adenike Pirngle ATTENDING PHYSICIAN STATEMENT I saw and evaluated the patient. I reviewed the resident's note and discussed the case with the resident. I agree with the resident's findings and plan as documented. SUBJECTIVE: Mr Keyes is without complaint. No cp, sob, n/v. OBJECTIVE: Last Vital Signs Temp Pulse Resp BP Pulse Ox 36.6 C 66 18 128/62 96 08/06/18 14:07 08/06/18 14:07 08/06/18 14:08/06/18 14:07 08/05/18 20:01 ASSESSMENT AND PLAN: Problem List - Problems (1) Alzheimer's dementia with behavioral disturbance Code(s): G30.9 - ALZHEIMER'S DISEASE, UNSPECIFIED; F02.81 - DEMENTIA IN OTH DISEASES CLASSD ELSWHR W BEHAVIORAL DISTURB Qualifiers: Alzheimer's disease onset: unspecified onset Qualified Code(s): G30.9 - Alzheimer's disease, unspecified; F02.81 - Dementia in other diseases classified elsewhere with behavioral disturbance (2) HTN (hypertension) Code(s): I10 - ESSENTIAL (PRIMARY) HYPERTENSION (3) BPH (benign prostatic hyperplasia) Code(s): N40.0 - BENIGN PROSTATIC HYPERPLASIA WITHOUT LOWER URINRY TRACT SYMP (4) Gout Code(s): M10.9 - GOUT, UNSPECIFIED (5) CAD (coronary artery disease) Code(s): I25.10 - ATHSCL HEART DISEASE OF [place] CORONARY ARTERY W/O ANG PCTRS (6) Crohn's disease Code(s): K50.90 - CROHN'S DISEASE, UNSPECIFIED, WITHOUT COMPLICATIONS
--- NOTE | 2018-08-06 18:19 | DS ---
Physical Exam: SUBJECTIVE: Patient seen and examined, sitting in wheel chair with daughter by his side. NO complaints. OBJECTIVE: Vital Signs Period Temp Pulse Resp BP Sys/Lobo Pulse Ox Last 24 Hr 97.6 F-98.4 F 58-70 18-20 128-156/62-81 96 PHYSICAL EXAM GENERAL: The patient is awake, alert, pleasantly confused LUNGS: Breath sounds equal, clear to auscultation bilaterally, no wheezes, no crackles, no accessory muscle use. HEART: Regular rate and rhythm, S1, S2 without murmur, rub or gallop. ABDOMEN: Soft, nontender, nondistended, normoactive bowel sounds, no guarding, no rebound, no hepatosplenomegaly, no masses. EXTREMITIES: 2+ pulses, warm, well-perfused, no edema. NEUROLOGICAL:confused at baseline SKIN: Warm, dry, normal turgor, no rashes or lesions noted. LABS Laboratory Results - last 24 hr 08/06/18 08/06/18 06:25 06:25 WBC 5.1 RBC 3.60 L Hgb 12.9 Hct 36.6 MCV 101.9 H MCH 35.8 H MCHC 35.1 RDW 14.5 Plt Count 213 D MPV 8.3 Absolute Neuts (auto) 3.7 Neutrophils % 71.2 Lymphocytes % 16.9 D Monocytes % 9.1 Eosinophils % 2.1 Basophils % 0.7 Nucleated RBC % 0 Sodium 144 Potassium 3.8 Chloride 108 H Carbon Dioxide 29 Anion Gap 6 L BUN 17 Creatinine 0.9 Creat Clearance w eGFR > 60 Random Glucose 103 Calcium 8.9 Phosphorus 3.4 Magnesium 2.2 HOSPITAL COURSE: Date of Admission:08/01/18 Date of Discharge: 08/06/18 Patient is an 83 year old male with past medical history of Alzheimer's dementia , BPH, HTN, Crohn's disease, CAD, was brought to the ED by her daughters due to worsening dementia, with accompanying visual hallucinations. CT had completed and did not show acute changes. Patient was seen by neurology, no acute pathology noted. Psychology was consulted seroquel was d/c'd and Zyprexa was started due to hallucination with accompanied dementia. Patient and family agreed to SNF. Minutes to complete discharge: 45 Discharge Summary Reason For Visit: DEMENTIA,HALLUCINATIONS,ALT MENTAL STATUS Condition: Fair - Instructions Diet, Activity, Other Instructions: MR. Keyes, you were in the hospital and evaluated by internal medicine team and psychiatry for hallucinations. We have adjusted some of your medications, see attached form. Referrals: Luis Roland MD [Primary Care Provider] - [facility] - Home Medications Comprehensive Discharge Medication List: Ambulatory Orders Metoprolol Succinate [Toprol XL -] 50 mg PO BID #0 tab.sr.24h 11/09/11 Terazosin HCl [Hytrin -] 10 mg PO DAILY #0 capsule 11/09/11 Allopurinol [Zyloprim -] 300 mg PO DAILY 03/25/12 Atorvastatin Calcium [Lipitor] 10 mg PO DAILY 03/25/12 Quinapril/Hydrochlorothiazide [Accuretic 20-12.5 mg Tablet] 1 tab PO HS Azathioprine [Imuran -] 50 mg PO DAILY 09/15/15 Mesalamine [Apriso] 4 tab PO DAILY 09/15/15 Memantine HCl [Namenda -] 10 mg PO BID 08/01/18 Hydrochlorothiazide [Hctz -] 12.5 mg PO HS cap 08/06/18 Olanzapine [Zyprexa -] 5 mg PO HS tablet 08/06/18 Quinapril HCl [Accupril -] 20 mg PO HS tablet 08/06/18 This patient is new to me today: Yes Date on this admission: 08/06/18 Emergency Visit: Yes ED Registration Date: 08/01/18 Care time: The patient presented to the Emergency Department on the above date and was hospitalized for further evaluation of their emergent condition. Critical Care patient: No - Discharge Referral Referred to [facility] No
== END 2018-08-06 15:45 | DRG 57 ==
LOC: JER 13:12 → JERBED 19:15 → J7W 22:34
PROVIDERS: ADMIT Internal Medicine; ATTEND Internal Medicine
DX: G30.9 Alzheimer's disease, unspecified (principal); K50.90 Crohn's disease, unspecified, without complications; F02.81 Dementia in other diseases classified elsewhere, unspecified severity, with behavioral disturbance; N40.0 Benign prostatic hyperplasia without lower urinary tract symptoms; I10 Essential (primary) hypertension; I25.10 Atherosclerotic heart disease of native coronary artery without angina pectoris; I25.2 Old myocardial infarction; E86.0 Dehydration; E78.00 Pure hypercholesterolemia, unspecified; M10.9 Gout, unspecified; R44.1 Visual hallucinations; D75.89 Other specified diseases of blood and blood-forming organs; Z87.891 Personal history of nicotine dependence
CPT/HCPCS: 36415; 70450-TC; 71046-TC-FY; 80048; 80053; 81003; 82607; 82746; 83735; 84100; 84207; 84443; 84484; 85025; 85610; 85651; 86140; 86593; 86803; 87389; 93005; 93010; 97116-GP; 97162-GP; 99284-25